=== PATIENT | female | born 1980 | race Caucasian/White ===

== ENCOUNTER 2016-03-27 11:19 | Outpatient (CLI) | payer MEDICAID | END 2016-03-27 11:20 | disposition home or self-care (01) | DX: G47.33 Obstructive sleep apnea (adult) (pediatric) (principal); G47.8 Other sleep disorders; G47.10 Hypersomnia, unspecified; R06.83 Snoring ==

== ENCOUNTER 2016-06-04 10:23 | Outpatient (CLI) | payer MEDICAID | END 2016-06-04 10:24 | disposition home or self-care (01) | DX: G47.33 Obstructive sleep apnea (adult) (pediatric) (principal) ==

== ENCOUNTER 2016-06-18 17:15 | Emergency (ER) | payer MEDICAID ==
[2016-06-18] MEDS ORDERED: CYCLOBENZAPRINE 10 MG TABLET PO STA (18:19)
[2016-06-18] MEDS ORDERED: HYDROcod/ACETAM 5/325 MG TABLET PO STA (18:19)
[2016-06-18] MEDS ORDERED: DEXAMETHASONE 10 MG/ML VIAL PO STA (18:20)
[2016-06-18] MEDS ORDERED: HYDROcod/ACETAM 5/325 MG TABLET ONE (18:26)
[2016-06-18] MEDS ORDERED: CYCLOBENZAPRINE 10 MG TABLET PO ONE (18:27)
[2016-06-18] MEDS ORDERED: DEXAMETHASONE 10 MG/ML VIAL ONE (18:27)
== END 2016-06-18 18:58 | disposition home or self-care (01) ==
DX: S16.1XXA Strain of muscle, fascia and tendon at neck level, initial encounter (principal); X58.XXXA Exposure to other specified factors, initial encounter; R03.0 Elevated blood-pressure reading, without diagnosis of hypertension
CPT/HCPCS: 99283; A9270

== ENCOUNTER 2016-06-25 08:08 | Emergency (ER) | payer MEDICAID ==
[2016-06-25] MEDS ORDERED: TRIAMCINOLONE 40 MG/ML VIAL IM STA (08:31)
[2016-06-25] MEDS ORDERED: diazePAM 5 MG TABLET PO STA (08:32)
[2016-06-25] MEDS ORDERED: traMADol 50 MG TABLET PO STA (08:32)
[2016-06-25] MEDS ORDERED: TRIAMCINOLONE 40 MG/ML VIAL ONE (08:34)
[2016-06-25] MEDS ORDERED: traMADol 50 MG TABLET PO ONE (08:34)
[2016-06-25] MEDS ORDERED: diazePAM 5 MG TABLET PO ONE (08:35)
== END 2016-06-25 09:20 | disposition home or self-care (01) ==
DX: M62.838 Other muscle spasm (principal)
CPT/HCPCS: 20552; 99283; A9270

== ENCOUNTER 2016-07-14 16:13 | Outpatient (CLI) | payer MEDICAID ==
[2016-07-14] MEDS ORDERED: GADOBUTROL 7.5 MMOL/7.5 ML VIAL IVP ONE (17:03)
== END 2016-07-14 16:14 | disposition home or self-care (01) ==
DX: R20.9 Unspecified disturbances of skin sensation (principal); R41.3 Other amnesia
CPT/HCPCS: 70553; A9585

== ENCOUNTER 2016-11-01 14:07 | Outpatient (CLI) | payer MEDICAID ==
[2016-11-01 19:05] LABS: BASOPHILS % (AUTO) 0.1 %; EOSINOPHILS % (AUTO) 0.3 %; HCT - HEMATOCRIT 39.3 % (37.0-47.0); LYMPHOCYTES % (AUTO) 27.3 %; MEAN CORPUSCULAR HEMOGLOBIN 25.9 pg (27.0-31.0); MEAN CORPUSCULAR VOLUME 78.5 fL (81.0-99.0); MEAN PLATELET VOLUME 10.8 fL (7.9-10.8); MONOCYTES # (AUTO) 0.5 10^3/uL (0.0-1.0); MONOCYTES % (AUTO) 7.4 %; NEUTROPHILS # (AUTO) 4.8 10^3/uL (1.5-6.6); NEUTROPHILS % (AUTO) 64.9 %; RED BLOOD COUNT 5.01 10^6/uL (4.20-5.40); RED CELL DISTRIBUTION WIDTH 13.3 % (12.0-15.0); UNCORRECTED WHITE BLOOD COUNT 7.3 x10^3/uL; WHITE BLOOD COUNT 7.3 x10^3/uL (4.8-10.8)
[2016-11-01 19:25] LABS: ALBUMIN/GLOBULIN RATIO 1.4 (1.0-2.2); BILIRUBIN,TOTAL 0.4 mg/dL (0.2-1.0); BUN - BLOOD UREA NITROGEN 7 mg/dL (6-20); CALCIUM 9.3 mg/dL (8.5-10.3); CARBON DIOXIDE - CO2 24 mmol/L (21-32); CHLORIDE 104 mmol/L (101-111); CREATININE 0.7 mg/dL (0.4-1.0); GFR - MDRD 94 (>89); GLUCOSE 90 mg/dL (70-100); IRON 39 ug/dL (28-170); POTASSIUM 3.8 mmol/L (3.5-5.0); SODIUM 138 mmol/L (135-145); TOTAL IRON BINDING CAPACITY 463 ug/dL (250-450); TOTAL PROTEIN 7.5 g/dL (6.7-8.2); TRANSFERRIN 331 mg/dL (192-382)
[2016-11-01 19:38] LABS: FERRITIN 21.1 ng/mL (11.0-306.8)
[2016-11-01 19:52] LABS: THYROID STIMULATING HORMONE 1.22 uIU/mL (0.34-5.60)
== END 2016-11-01 14:08 | disposition home or self-care (01) ==
LOC: LAB.WCP 14:07
PROVIDERS: ATTEND Physician Assistant Medical
DX: Z51.81 Encounter for therapeutic drug level monitoring (principal)
CPT/HCPCS: 36415; 80053; 82728; 83540; 84443; 84466; 85025

== ENCOUNTER 2016-12-09 08:22 | Outpatient (CLI) | payer MEDICAID | END 2016-12-09 08:23 | disposition home or self-care (01) | LOC: DI 08:22 | PROVIDERS: ATTEND Physician Assistant Medical | DX: R00.1 Bradycardia, unspecified (principal); I51.7 Cardiomegaly | CPT/HCPCS: 93306 ==

== ENCOUNTER 2017-03-03 20:08 | Emergency (ER) | payer MEDICAID, OTHER ==
[2017-03-03 20:49] LABS: BASOPHILS % (AUTO) 0.3 %; EOSINOPHILS # (AUTO) 0.1 10^3/uL (0.0-0.7); EOSINOPHILS % (AUTO) 0.9 %; HGB - HEMOGLOBIN 12.4 g/dL (12.0-16.0); LYMPHOCYTES # (AUTO) 1.3 10^3/uL (1.5-3.5); LYMPHOCYTES % (AUTO) 15.2 %; MEAN CORPUSCULAR HEMOGLOBIN 24.7 pg (27.0-31.0); MEAN CORPUSCULAR HGB CONC 31.7 g/dL (32.0-36.0); MEAN CORPUSCULAR VOLUME 77.9 fL (81.0-99.0); MEAN PLATELET VOLUME 9.9 fL (7.9-10.8); MONOCYTES # (AUTO) 0.4 10^3/uL (0.0-1.0); MONOCYTES % (AUTO) 5.4 %; NEUTROPHILS # (AUTO) 6.5 10^3/uL (1.5-6.6); NEUTROPHILS % (AUTO) 78.2 %; PLT - PLATELET COUNT 198 10^3/uL (130-450); RED BLOOD COUNT 5.01 10^6/uL (4.20-5.40); RED CELL DISTRIBUTION WIDTH 12.8 % (12.0-15.0); WHITE BLOOD COUNT 8.3 x10^3/uL (4.8-10.8)
[2017-03-03 21:06] LABS: ALBUMIN 4.1 g/dL (3.2-5.5); ALBUMIN/GLOBULIN RATIO 1.2 (1.0-2.2); BILIRUBIN,TOTAL 0.3 mg/dL (0.2-1.0); CALCIUM 9.4 mg/dL (8.5-10.3); CREATININE 0.7 mg/dL (0.4-1.0); MAGNESIUM 2.1 mg/dL (1.7-2.8); PHOSPHORUS 1.6 mg/dL (2.5-4.6); TOTAL PROTEIN 7.4 g/dL (6.7-8.2)
[2017-03-03 21:30] LABS: MUDS CUTOFF CONCENTRATIONS CUTOFF CONC BELOW:
[2017-03-03 21:32] LABS: BILIRUBIN,URINE NEGATIVE (NEGATIVE); GLUCOSE, URINE (UA) NEGATIVE (NEGATIVE); KETONES,URINE (UA) NEGATIVE (NEGATIVE); LEUKOCYTE ESTERASE, URINE NEGATIVE (NEGATIVE); NITRITE,URINE NEGATIVE (NEGATIVE); OCCULT BLOOD,URINE MODERATE (NEGATIVE); PROTEIN,URINE NEGATIVE (NEGATIVE); UROBILINOGEN,URINE 0.2 (NORMAL) E.U./dL (NORMAL)
[2017-03-03 21:34] LABS: CLARITY,URINE HAZY (CLEAR)
[2017-03-03] MEDS ORDERED: ONDANSETRON ODT 4 MG TABLET TL STA (21:36)
[2017-03-03 21:44] LABS: AMPHETAMINE SCREEN,URINE NEGATIVE (NEGATIVE); BACTERIA,URINE Moderate /HPF (None Seen); BENZODIAZEPINES SCREEN, URINE NEGATIVE (NEGATIVE); COCAINE SCREEN URINE NEGATIVE (NEGATIVE); METHADONE SCREEN, URINE NEGATIVE (NEGATIVE); METHAMPHETAMINES SCREEN, URINE NEGATIVE (NEGATIVE); OPIATE SCREEN, URINE NEGATIVE (NEGATIVE); OXYCODONE SCREEN, URINE NEGATIVE (NEGATIVE); PROPOXYPHENE SCREEN, URINE NEGATIVE (NEGATIVE); SQUAMOUS EPITHELIAL CELL,UR MANY Squamous (<= Few); TRICYCLIC ANTIDEPRESSANT,URINE NEGATIVE (NEGATIVE)
--- NOTE | 2017-03-03 21:57 | ED Physician Documentation ---
PD HPI CHEST PAIN - Stated complaint Stated Complaint: HEART PALP/NAUSEA - Chief complaint Chief Complaint: Cardiac - History obtained from History obtained from: Patient, Family - History of Present Illness Timing - onset: Today Timing - details: Now resolved, Intermittant Associated symptoms: Palpitations Similar symptoms before: Work up / diagnostics Recently seen: Clinic - Additional information Additional information: Patient is a 36 year old female presenting to the emergency department for palpitations. patient states that she has had the symptoms for the past few weeks. patient states that it just comes and goes without aggravating or alleviating factors. patient states that at times it is accompanied by nausea. Patient saw her pmd, who scheduled cardiology follow up, but the pmd was unable to order a halter monitor. patient states that she has been working with her signals officer for elevated cortisol levels. Review of Systems Constitutional: denies: Fever, Chills Eyes: denies: Decreased vision, Photophobia Ears: denies: Ear pain, Drainage/discharge Nose: reports: Reviewed and negative Throat: reports: Reviewed and negative Cardiac: reports: Palpitations. denies: Chest pain / pressure Respiratory: denies: Dyspnea, Cough, Wheezing GI: reports: Nausea, Vomiting. 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 HEENT: Other - Present Medications Home Medications: Ambulatory Orders Medication Instructions Recorded Confirmed Levonorgestrel-Ethin Estradiol 1 tab PO DAILY 11/22/16 03/03/17 [Levonor-Eth Estrad 0.1-0.02 mg] Ondansetron Odt [Zofran] 4 mg TL Q6H PRN #14 tablet 03/03/17 - Allergies Allergies/Adverse Reactions: Allergies Allergy/AdvReac Type Severity Reaction Status Date / Time ibuprofen Allergy Severe Edema Verified 03/03/17 20:15 - Social History Does the pt smoke?: No Smoking Status: Never smoker Does the pt drink ETOH?: No Does the pt have substance abuse?: No - Immunizations Immunizations are current?: Yes - POLST Patient has POLST: No PD ED PE NORMAL - General General: Alert and oriented X 3, No acute distress, Well developed/nourished - HEENT HEENT: Atraumatic, PERRL, Moist mucous membranes - Neck Neck: Supple, no meningeal sign, No JVD - Cardiac Cardiac: RRR, No murmur - Respiratory Respiratory: No respiratory distress, Clear bilaterally - Abdomen Abdomen: Soft, Non tender, Non distended - Derm Derm: Normal color, Warm and dry, No rash - Extremities Extremities: No deformity, Normal ROM s pain, No calf tenderness / cord - Neuro Neuro: Alert and oriented X 3, No motor deficit, No sensory deficit, Normal speech - Psych Psych: Normal mood Results - Vitals Vitals: Vital Signs - 24 hr 03/03/17 20:12 Temperature 36.3 C L Heart Rate 66 Respiratory 18 Rate Blood Pressure 161/86 H O2 Saturation 100 Oxygen O2 Source Room air - EKG (time done) 2025 Rate: Rate (enter#) (59) Rhythm: Sinus bradycardia [place]: Normal Intervals: Normal [place] QRS: Normal Ischemia: Normal ST segments Compare to prior EKG: Unchanged from prior EKG - Labs Labs: Laboratory Tests 03/03/17 03/03/17 03/03/17 20:42 20:42 20:42 WBC 8.3 RBC 5.01 Hgb 12.4 Hct 39.0 MCV 77.9 L MCH 24.7 L MCHC 31.7 L RDW 12.8 Plt Count 198 MPV 9.9 Neut # 6.5 Lymph # 1.3 L [place] # 0.4 Eos # 0.1 Baso # 0.0 Absolute Nucleated RBC 0.00 Nucleated RBC % 0.0 Sodium 138 Potassium 3.4 L Chloride 103 Carbon Dioxide 23 Anion Gap 12.0 BUN 8 Creatinine 0.7 Estimated GFR (MDRD) 94 Glucose 149 H Calcium 9.4 Phosphorus 1.6 L Magnesium 2.1 Total Bilirubin 0.3 AST 22 ALT 19 Alkaline Phosphatase 47 Troponin I < 0.04 Total Protein 7.4 Albumin 4.1 Globulin 3.3 Albumin/Globulin Ratio 1.2 Lipase 21 L TSH HCG, Quant Urine Color Urine Clarity Urine pH Ur Specific [place] Urine Protein Urine Glucose (UA) Urine Ketones Urine Occult Blood Urine Nitrite Urine Bilirubin Urine Urobilinogen Ur Leukocyte Esterase Urine RBC Urine WBC Ur Squamous Epith Cells Urine Bacteria Ur Microscopic Review Urine Culture Comments Urine Opiates Screen Ur Oxycodone Screen Urine Methadone Screen Ur Propoxyphene Screen Ur Barbiturates Screen Ur Tricyclics Screen Ur Phencyclidine Scrn Ur Amphetamine Screen U Methamphetamines Scrn U Benzodiazepines Scrn Urine Cocaine Screen U Cannabinoids Screen 03/03/17 03/03/17 03/03/17 20:42 20:42 21:24 WBC RBC Hgb Hct MCV MCH MCHC RDW Plt Count MPV Neut # Lymph # [place] # Eos # Baso # Absolute Nucleated RBC Nucleated RBC % Sodium Potassium Chloride Carbon Dioxide Anion Gap BUN Creatinine Estimated GFR (MDRD) Glucose Calcium Phosphorus Magnesium Total Bilirubin AST ALT Alkaline Phosphatase Troponin I Total Protein Albumin Globulin Albumin/Globulin Ratio Lipase TSH 1.22 HCG, Quant < 0.60 Urine Color YELLOW Urine Clarity HAZY Urine pH 6.0 Ur Specific [place] >=1.030 H Urine Protein NEGATIVE Urine Glucose (UA) NEGATIVE Urine Ketones NEGATIVE Urine Occult Blood MODERATE H Urine Nitrite NEGATIVE Urine Bilirubin NEGATIVE Urine Urobilinogen 0.2 (NORMAL) Ur Leukocyte Esterase NEGATIVE Urine RBC 6-10 H Urine WBC 0-3 Ur Squamous Epith Cells MANY Squamous H Urine Bacteria Moderate H Ur Microscopic Review INDICATED Urine Culture Comments NOT INDICATED Urine Opiates Screen NEGATIVE Ur Oxycodone Screen NEGATIVE Urine Methadone Screen NEGATIVE Ur Propoxyphene Screen NEGATIVE Ur Barbiturates Screen NEGATIVE Ur Tricyclics Screen NEGATIVE Ur Phencyclidine Scrn NEGATIVE Ur Amphetamine Screen NEGATIVE U Methamphetamines Scrn NEGATIVE U Benzodiazepines Scrn NEGATIVE Urine Cocaine Screen NEGATIVE U Cannabinoids Screen NEGATIVE PD MEDICAL DECISION MAKING - ED course Complexity details: reviewed old records, reviewed results, re-evaluated patient , considered differential, d/w patient ED course: Patient was seen and examined at bedside. ekg was performed and showed normal sinus. Patient was well appearing and in no acute distress. patient's diagnostics were all within normal limits. Patient required no furhter work up and was stable for discharge with outpatient follow up. Departure - Departure Disposition: 01 Home, Self Care Clinical Impression: Heart palpitations Condition: Good Instructions: ED Palpitations Follow-Up: Liliana Gates PA-C [Primary Care Provider] - Within 3 Days Prescriptions: Ondansetron Odt [Zofran] 4 mg TL Q6H PRN #14 tablet PRN Reason: Nausea / Vomiting Comments: Your diagnostics today were within normal limits. there were no abnormalities on your blood work or ekg. This is only a snapshot in time and you should continue to work with your pmd or grocery store courtesy clerk for a holter monitor. You may return to the emergency department at any time for new, worsening or uncontrollable sympotms.
[2017-03-03 22:09] VITALS: BP 137/80
== END 2017-03-03 22:08 | disposition home or self-care (01) ==
LOC: ED 20:08
DX: R00.2 Palpitations (principal)
CPT/HCPCS: 36415; 80053; 80306; 81001; 83690; 83735; 84100; 84443; 84484; 84702; 85025; 93005; 99283; Q0162; 81003; 83880; 87086

== ENCOUNTER 2017-03-20 22:14 | Emergency (ER) | payer MEDICAID ==
[2017-03-20] MEDS ORDERED: SUMAtriptan 6 MG/0.5 ML VIAL SUBQ STA (22:38)
--- NOTE | 2017-03-20 22:39 | ED Physician Documentation ---
PD HPI FOCAL NEURO - Stated complaint Stated Complaint: BLURRY VISION - Chief complaint Chief Complaint: Neuro - History obtained from History obtained from: Patient - History of Present Illness Timing - onset: Other (She was putting her daughter to bed and looking at her daughter and it looked like her daughter's face started melting. Then she looked around and looked like she was looking through a kaleidoscope. She looked at her phone and regardless of which I she used, the left side of her phone was blurry and she was having trouble getting the numbers. 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, 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, LEEP (Cervical surgery) HEENT: Other - Present Medications Home Medications: Ambulatory Orders Medication Instructions Recorded Confirmed Levonorgestrel-Ethin Estradiol 1 tab PO DAILY 11/22/16 03/20/17 [Levonor-Eth Estrad 0.1-0.02 mg] SUMAtriptan [Imitrex] 25 mg PO BID PRN #10 tablet 03/20/17 - Allergies Allergies/Adverse Reactions: Allergies Allergy/AdvReac Type Severity Reaction Status Date / Time ibuprofen Allergy Severe Edema Verified 03/03/17 20:15 - Social History Does the pt smoke?: No Smoking Status: Never smoker Does the pt drink ETOH?: No Does the pt have substance abuse?: No - Immunizations Immunizations are current?: Yes - POLST Patient has POLST: No PD ED PE NORMAL - Vitals Vital signs reviewed: Yes - General General: Alert and oriented X 3, No acute distress - HEENT HEENT: PERRL, EOMI, Ears normal - Neck Neck: Supple, no meningeal sign, No bony TTP - Neuro Neuro: Alert and oriented X 3, 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 Eye Opening: Spontaneous Motor: Obeys Commands Verbal: Oriented GCS Score: 15 - Psych Psych: Normal mood, Normal affect NIHSS - Time Time: 20:30 - Level of Consciousness Level of consciousness: (0) Alert, Keenly responsive LOC Questions: (0) Answers both Q's correct LOC Commands: (0) Performs both correctly - Gaze Best Gaze: (0) Normal - Visual Visual: (0) No loss - Facial Palsy Facial Palsy: (0) Normal, symmetrical movement - Motor Arms (both separate) Motor Arm (right): (0) No drift Motor Arm (left): (0) No drift - Motor Legs (both separate) Motor Leg (right): (0) No drift Motor Leg (left): (0) No drift - Limb Ataxia Limb Ataxia: (0) Absent - Sensory Sensory: (0) Normal - Best Language Best Language: (0) No aphasia - Dysarthria Dysarthria: (0) Normal - Extinction and Inattention (formally neg Extinction and inattention: (0) No abnormality - Total Score/Results Total Score/Result: 0 Results - Vitals Vitals: Vital Signs - 24 hr 03/20/17 22:19 Temperature 37.2 C Heart Rate 67 Respiratory 14 Rate Blood Pressure 144/82 H O2 Saturation 99 Oxygen O2 Source Room air PD MEDICAL DECISION MAKING - ED course ED course: Her history is diagnostic of ocular migraine. Her examination at this juncture is normal and she is administered Imitrex. Departure - Departure Disposition: 01 Home, Self Care Clinical Impression: Ocular migraine Condition: Good Record reviewed to determine appropriate education?: Yes Instructions: ED Headache Migraine Prescriptions: SUMAtriptan [Imitrex] 25 mg PO BID PRN #10 tablet PRN Reason: Headache Comments: Call your doctor to arrange a follow-up appointment, make the next available appointment. In the interim, return anytime if worse or if new symptoms develop. Your blood pressure was elevated today on check into the emergency department. This does not mean that you have hypertension, it is a common phenomenon to come to the emergency department and have elevated blood pressure. I recommend that you see your primary care physician within the week to have it rechecked when you are feeling better.
[2017-03-20] MEDS ORDERED: ONDANSETRON ODT 4 MG TABLET TL STA (23:19)
[2017-03-20] MEDS ORDERED: oxyCODONE/ACET 5/325 Prepack 4 PO STA (23:20)
[2017-03-20 23:25] VITALS: BP 140/79
== END 2017-03-20 23:50 | disposition home or self-care (01) ==
LOC: ED 22:14
DX: G43.B0 Ophthalmoplegic migraine, not intractable (principal); R03.0 Elevated blood-pressure reading, without diagnosis of hypertension
CPT/HCPCS: 96372; 99283; Q0162

== ENCOUNTER 2017-03-29 08:00 | Outpatient (CLI) | payer MEDICAID ==
[2017-03-29 21:05] LABS: PHOSPHORUS 3.2 mg/dL (2.5-4.6)
== END 2017-03-29 08:01 | disposition home or self-care (01) ==
LOC: LAB.WCP 08:00
PROVIDERS: ATTEND Physician Assistant Medical
DX: E83.39 Other disorders of phosphorus metabolism (principal); E87.6 Hypokalemia
CPT/HCPCS: 36415; 84100; 84132

== ENCOUNTER 2018-04-09 19:06 | Emergency (ER) | payer MEDICAID ==
[2018-04-09 19:34] LABS: BASOPHILS % (AUTO) 0.9 %; EOSINOPHILS # (AUTO) 0.1 10^3/uL (0.0-0.7); EOSINOPHILS % (AUTO) 2.6 %; LYMPHOCYTES # (AUTO) 1.5 10^3/uL (1.5-3.5); MEAN CORPUSCULAR HEMOGLOBIN 25.5 pg (27.0-31.0); MEAN CORPUSCULAR HGB CONC 31.6 g/dL (32.0-36.0); MEAN CORPUSCULAR VOLUME 80.7 fL (81.0-99.0); MEAN PLATELET VOLUME 8.9 fL (7.9-10.8); MONOCYTES # (AUTO) 0.5 10^3/uL (0.0-1.0); MONOCYTES % (AUTO) 8.8 %; NEUTROPHILS # (AUTO) 3.3 10^3/uL (1.5-6.6); NEUTROPHILS % (AUTO) 60.7 %; PLT - PLATELET COUNT 187 10^3/uL (130-450); RED BLOOD COUNT 4.73 10^6/uL (4.20-5.40); RED CELL DISTRIBUTION WIDTH 14.3 % (12.0-15.0); WHITE BLOOD COUNT 5.4 x10^3/uL (4.8-10.8)
[2018-04-09 19:48] LABS: ALBUMIN 4.1 g/dL (3.2-5.5); ALBUMIN/GLOBULIN RATIO 1.6 (1.0-2.2); BILIRUBIN,TOTAL 0.7 mg/dL (0.2-1.0); CALCIUM 8.9 mg/dL (8.5-10.3); CREATININE 0.7 mg/dL (0.4-1.0); TOTAL PROTEIN 6.6 g/dL (6.7-8.2)
[2018-04-09 20:35] LABS: BILIRUBIN,URINE NEGATIVE (NEGATIVE); CLARITY,URINE CLEAR (CLEAR); GLUCOSE, URINE (UA) NEGATIVE (NEGATIVE); KETONES,URINE (UA) NEGATIVE (NEGATIVE); LEUKOCYTE ESTERASE, URINE NEGATIVE (NEGATIVE); NITRITE,URINE NEGATIVE (NEGATIVE); OCCULT BLOOD,URINE NEGATIVE (NEGATIVE); PH,URINE 6.5 PH (5.0-7.5); PROTEIN,URINE NEGATIVE (NEGATIVE); UROBILINOGEN,URINE 0.2 (NORMAL) E.U./dL (NORMAL)
[2018-04-09 20:37] LABS: HCG UR QUAL NEGATIVE
--- NOTE | 2018-04-09 21:21 | ED Physician Documentation ---
PD HPI ABD PAIN - Stated complaint Stated Complaint: SIDE PX/NAUSEA - Chief complaint Chief Complaint: Abd Pain - History obtained from History obtained from: Patient - History of Present Illness Timing - onset: How many months ago (intermittent upper abd pain for 2 months, more frequent the past week or so, and has had consistent pain RUQ since yesterday, with nausea and diarrhea today. Vomited couple times without blood seen.) Timing - details: Still present (continued pain RUQ since yesterday, frequent the past week.), Intermittant Quality: Cramping, Aching, Pain Location: RUQ, Epigastric Radiation: Upper back Improved by: Laying still. No: Vomiting Worsened by: Moving, Breathing (sometimes hurts with deep breaths), Palpation. No: Eating Associated symptoms: Nausea, Vomiting, Diarrhea (just today several times, w ithout melena). No: Fever, Hematemesis, Melena Similar symptoms before: Has not had sx before Recently seen: Not recently seen Review of Systems Constitutional: denies: Fever, Chills, Myalgias Nose: denies: Rhinorrhea / runny nose, Congestion Throat: denies: Sore throat Cardiac: denies: Chest pain / pressure Respiratory: denies: Cough GI: reports: Abdominal Pain. 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 (Cervical surgery) HEENT: Other - Present Medications Home Medications: Ambulatory Orders Medication Instructions Recorded Confirmed Levonorgestrel-Ethin Estradiol 1 tab PO DAILY 11/22/16 03/20/17 [Levonor-Eth Estrad 0.1-0.02 mg] SUMAtriptan [Imitrex] 25 mg PO BID PRN #10 tablet 03/20/17 Famotidine 20 mg PO DAILY #30 tablet 04/10/18 Lidocaine Viscous 2% [Xylocaine 5 ml PO Q4H PRN #100 ml 04/10/18 Viscous 2%] Ondansetron Odt [Zofran] 4 mg TL Q6H PRN #10 tablet 04/10/18 Oxycodone HCl/Acetaminophen 1 each PO Q6H PRN #14 tablet 04/10/18 [Percocet 5-325 mg Tablet] - Allergies Allergies/Adverse Reactions: Allergies Allergy/AdvReac Type Severity Reaction Status Date / Time ibuprofen Allergy Severe Edema Verified 04/09/18 19:17 - Social History Does the pt smoke?: No Smoking Status: Never smoker Does the pt drink ETOH?: No Does the pt have substance abuse?: No - Immunizations Immunizations are current?: Yes - POLST Patient has POLST: No PD ED PE NORMAL - Vitals Vital signs reviewed: Yes - General General: Alert and oriented X 3, Well developed/nourished, Other (appears in pain; holding upper abd. ) - HEENT HEENT: PERRL (nonicteric), Pharynx benign - Neck Neck: Supple, no meningeal sign, No adenopathy - Cardiac Cardiac: RRR, No murmur - Respiratory Respiratory: Clear bilaterally - Abdomen Abdomen: Normal bowel sounds, Soft, Non distended, No organomegaly, Other (tender RUQ with positive [place] sign. Lower abd not tender. No rebound nor percussion tenderness. ) - Female Female : Deferred - Rectal Rectal: Deferred - Back Back: No CVA TTP - Derm Derm: Normal color, Warm and dry - Extremities Extremities: No tenderness to palpate, Normal ROM s pain, No edema, No calf tenderness / cord - Neuro Neuro: Alert and oriented X 3, No motor deficit, Normal speech Results - Vitals Vitals: Vital Signs - 24 hr 04/09/18 04/10/18 23:17 00:31 Temperature 36.0 C L 36.5 C Heart Rate 48 L 48 L Respiratory 16 16 Rate Blood Pressure 114/79 109/78 O2 Saturation 99 97 Oxygen O2 Source Room air - Labs Labs: Laboratory Tests 04/09/18 04/09/18 04/09/18 19:29 19:29 20:26 WBC 5.4 RBC 4.73 Hgb 12.0 Hct 38.2 MCV 80.7 L MCH 25.5 L MCHC 31.6 L RDW 14.3 Plt Count 187 MPV 8.9 Neut # (Auto) 3.3 Lymph # (Auto) 1.5 [place] # (Auto) 0.5 Eos # (Auto) 0.1 Baso # (Auto) 0.0 Absolute Nucleated RBC 0.00 Nucleated RBC % 0.0 Sodium 137 Potassium 3.4 L Chloride 99 L Carbon Dioxide 28 Anion Gap 10.0 BUN 12 Creatinine 0.7 Estimated GFR (MDRD) 94 Glucose 101 H Calcium 8.9 Total Bilirubin 0.7 AST 22 ALT 23 Alkaline Phosphatase 41 L Total Protein 6.6 L Albumin 4.1 Globulin 2.5 Albumin/Globulin Ratio 1.6 Lipase 51 Urine Color YELLOW Urine Clarity CLEAR Urine pH 6.5 Ur Specific [place] 1.015 Urine Protein NEGATIVE Urine Glucose (UA) NEGATIVE Urine Ketones NEGATIVE Urine Occult Blood NEGATIVE Urine Nitrite NEGATIVE Urine Bilirubin NEGATIVE Urine Urobilinogen 0.2 (NORMAL) Ur Leukocyte Esterase NEGATIVE Ur Microscopic Review NOT INDICATED Urine Culture Comments NOT INDICATED Urine HCG, Qual NEGATIVE - Rads (name of study) RUQ abd U/S Radiology: Prelim report reviewed (mobile gallstone without wall thickening nor surrounding fluid. CBD normal 3 mm. ) PD MEDICAL DECISION MAKING - ED course Complexity details: reviewed results (gallstone that is mobile. No wall thickening though, but is tender over gallbladder. Pain less with meds here (she declined IV, so just had oral meds). Will discharge home with meds for possible gastritis and pain meds for gallbladder and expect improvement over a day or two, and to recheck if not. Sooner if fevers, worse pain, vomiting. ), considered differential (sounds like gallbladder pain, though consider gastritis as well. Not tender lower abd. ), d/w patient Departure - Departure Disposition: 01 Home, Self Care Clinical Impression: Upper abdominal pain Cholelithiasis Qualifiers: Cholelithiasis location: gallbladder Cholecystitis presence: without cholecystitis Biliary obstruction: without biliary obstruction Qualified Code(s): K80.20 - Calculus of gallbladder without cholecystitis without obstruction Gastritis Qualifiers: Gastritis type: unspecified gastritis Chronicity: acute Gastritis bleeding: without bleeding Qualified Code(s): K29.00 - Acute gastritis without bleeding Condition: Stable Record reviewed to determine appropriate education?: Yes Instructions: ED Abdominal Pain Gallstone Poss, ED Gastritis Follow-Up: Waqar Ross MD [Primary Care Provider] - Hugh Morales MD [Provider Admit Priv/Credential] - Prescriptions: Famotidine 20 mg PO DAILY #30 tablet Lidocaine Viscous 2% [Xylocaine Viscous 2%] 5 ml PO Q4H PRN #100 ml PRN Reason: Pain Ondansetron Odt [Zofran] 4 mg TL Q6H PRN #10 tablet PRN Reason: Nausea / Vomiting Oxycodone HCl/Acetaminophen [Percocet 5-325 mg Tablet] 1 each PO Q6H PRN #14 tablet PRN Reason: pain Comments: The location and character of the pain would go along with gallbladder pain. You do have a mobile gallstone on ultrasound which would correlate with that. However there is no signs of inflammation of the gallbladder that you might expect with your current pain. Therefore would also consider other causes of the pain such as an ulcer or gastritis. Have you avoid anti-inflammatories. Use ondansetron if needed for nausea. Antacid and lidocaine for stomach pains episodically. Add Percocet pain medicine if needed for pain. Drink lots of fluids. Recheck if not improved over the next 2-3 days return sooner if worsening. Follow-up with surgery and call for an appointment regarding the potential indications or such for gallbladder surgery. Forms: Activity restrictions Discharge Date/Time: 04/10/18 00:34
[2018-04-09] MEDS: ONDANSETRON ODT 4 MG TABLET TL STA (22:00)
[2018-04-09] MEDS: FAMOTIDINE 20 MG TABLET PO STA (22:00)
[2018-04-09] MEDS: MAG HYDROX/AL HYDROX/SIMETH 30 ML UDC PO STA ×2 (22:00→23:58)
[2018-04-09] MEDS: KETOROLAC 15 MG/ML VIAL IVP STA (22:12)
[2018-04-09] MEDS: HYDROcod/ACETAM 5/325 MG TABLET PO STA (22:12)
[2018-04-09] MEDS: FAMOTIDINE 20 MG/2 ML VIAL IVP STA (22:12)
[2018-04-09] MEDS: ONDANSETRON 4 MG/2 ML VIAL IVP STA (22:13)
[2018-04-09] MEDS: SODIUM CHLORIDE 0.9% 1,000 ML IV ONE (22:13)
--- NOTE | 2018-04-09 23:17 | Ultrasound Report ---
Reason: RUQ pain for 3 days consistently, on and off 1 mon Procedure Date: 04/09/2018 Accession Number: [id number] / [id number] Procedure: US - Abdomen Limited CPT Code: FULL RESULT: EXAM: ABDOMEN ULTRASOUND LIMITED, RUQ EXAM DATE: 04/09/2018 10:56 PM. CLINICAL HISTORY: RUQ pain for 3 days consistently, on and off 1 mon. COMPARISON: None. TECHNIQUE: Real-time scanning was performed with static images obtained. FINDINGS: Liver: Normal in size and echotexture. 19.6 cm. Main portal vein flow: Hepatopetal. Gallbladder: .Mm gallstone. No abnormal wall thickening or sonographic [place] sign. Biliary System: CBD measures 3 mm. No intrahepatic biliary ductal dilatation. Other: Right kidney measures 11.1 cm without hydronephrosis. IMPRESSION: Cholelithiasis. No sonographic evidence for cholecystitis. RADIA
[2018-04-09] MEDS: oxyCODONE 5 MG TABLET PO STA (23:57)
[2018-04-09] MEDS: LIDOCAINE VISCOUS 2% 15 ML UDC MM STA (23:58)
[2018-04-09] MEDS: oxyCODONE/ACET 5/325 Prepack 4 PO STA (23:59)
[2018-04-10 00:32] VITALS: BP 109/78
== END 2018-04-10 00:34 | disposition home or self-care (01) ==
LOC: ED 19:06
DX: K80.20 Calculus of gallbladder without cholecystitis without obstruction (principal); K29.00 Acute gastritis without bleeding
CPT/HCPCS: 36415; 76705; 80053; 81001; 81003; 81025; 83690; 85025; 87086; 99283

== ENCOUNTER 2018-04-16 06:04 | Day surgery (SDC) | payer MEDICAID ==
[2018-04-16] MEDS ORDERED: LACTATED RINGERS 1,000 ML IV ONE ×2 (06:42→08:54)
[2018-04-16] MEDS ORDERED: ONDANSETRON 4 MG/2 ML VIAL ONE ×2 (07:03→09:16)
--- NOTE | 2018-04-16 07:06 | ANESTHESIA ---
Pre-Anesthesia VS, & Labs - Diagnosis cholelithiasis - Procedure laparoscopic cholecystectomy Vital Signs: Temp Pulse Resp BP Pulse Ox 36.6 C 57 L 16 119/80 98 04/16/18 06:32 04/16/18 06:32 04/16/18 06:32 04/16/18 06:32 04/16/18 06:32 Height 5 ft 2 in Weight (kg) 66 kg Body Mass Index 26.5 - NPO >8 hours - Is Patient ?: Waiver signed Home Medications and Allergies Home Medications: Ambulatory Orders Minocycline HCl 100 mg PO DAILY 04/15/18 Minocycline HCl 100 mg PO DAILY 04/15/18 Allergies/Adverse Reactions: Allergies Allergy/AdvReac Type Severity Reaction Status Date / Time ibuprofen Allergy Severe Edema Verified 04/09/18 19:17 iron AdvReac Nausea Verified 04/11/18 10:01 Anes History & Medical History - Anesthetic History Anesthesia Complications: reports: No previous complications Family history of Anesthesia Complications: Reports Family history of Malignant Hyperthermia: Denies - Medical History Cardiovascular: reports: Other Pulmonary: reports: Sleep apnea Gastrointestinal: reports: None Urinary: reports: None Musculoskeletal: reports: None Endocrine/Autoimmune: reports: None Skin: reports: None Smoking Status: Never smoker - Surgical History Eyes Ears Nose Throat (EENT): Other Gynecologic: section, Oophrectomy, LEEP (Cervical surgery) Exam General: Alert, Oriented x3, Cooperative, No acute distress Dental: WNL Mouth Openin Fingerbreadth Neck Mobility: Normal Mallampati classification: II Thyromental Distance: 4-6 cm Respiratory: Lungs clear, Normal breath sounds, No respiratory distress, No accessory muscle use Cardiovascular: Regular rate, Normal S1, Normal S2, No murmurs Mental/Cognitive Status: Alert/Oriented X3, Normal for patient Plan Anesthesia Type: General Consent for Procedure(s) Verified and Reviewed: Yes Code Status: Attempt Resuscitation ASA classification: 2-Mild systemic disease Is this case an emergency?: No
[2018-04-16] MEDS ORDERED: BUPIVACAINE 0.5% PF 30 ML VIAL ONE (07:25)
[2018-04-16] MEDS ORDERED: ceFAZolin 2 GM/50 ML 2 GM/50 ML BAG IV ONE (07:40)
[2018-04-16] MEDS ORDERED: ePHEDrine 50 MG/ML VIAL IVP ONE (08:00)
[2018-04-16] MEDS ORDERED: DEXAMETHASONE 4 MG/ML VIAL IVP ONE (08:00)
[2018-04-16] MEDS ORDERED: MIDAZOLAM 2 MG/2 ML VIAL IVP ONE (08:00)
[2018-04-16] MEDS ORDERED: ROCURONIUM 50 MG/5 ML VIAL IVP ONE (08:00)
[2018-04-16] MEDS ORDERED: GLYCOPYRROLATE 1 MG/5 ML VIAL IVP ONE (08:00)
[2018-04-16] MEDS ORDERED: ONDANSETRON 4 MG/2 ML VIAL IVP ONE (08:00)
[2018-04-16] MEDS ORDERED: BUPIVACAINE 0.5% PF 30 ML VIAL SUBQ ONE ×4 (08:00→08:35)
[2018-04-16] MEDS ORDERED: PROPOFOL 200 MG/20 ML VIAL IVP ONE (08:00)
[2018-04-16] MEDS ORDERED: SODIUM CHLORIDE 0.9% 10 ML VIAL IV ONE (08:00)
[2018-04-16] MEDS ORDERED: LIDOCAINE-MPF 2% 5 ML VIAL IM ONE (08:00)
[2018-04-16] MEDS ORDERED: NEOSTIGMINE 1 MG/1 ML 10 ML MDV IVP ONE (08:00)
[2018-04-16] MEDS ORDERED: fentaNYL 100 MCG/2 ML VIAL IVP ONE (08:00)
[2018-04-16] MEDS ORDERED: HYDROcod/ACETAM 5/325 MG TABLET PO PRN (08:51)
[2018-04-16] MEDS ORDERED: HYDROmorphone 0.5 MG/0.5 ML SYRINGE IVP PRN (08:51)
[2018-04-16] MEDS ORDERED: ONDANSETRON 4 MG/2 ML VIAL IVP PRN (08:51)
--- NOTE | 2018-04-16 08:54 | OPERATIVE REPORT ---
Operative Report - General Procedure Date: 04/16/18 Planned Procedure: Laparoscopic cholecystectomy, possible open cholecystectomy, possible intra Pre-Op Diagnosis: Symptomatic cholelithiasis Procedure Performed: Laparoscopic cholecystectomy Post Op Diagnosis: Same - Procedure Note Primary Surgeon: Hugh Morales MD Anesthesia Provider: Bin Garcia CRNA Anesthesia Technique: General ET tube, Local (30 mL of half percent Marcaine) IV Fluids (mL): 700 Estimated Blood Loss (mL): 1 Drain/Tube Type: Other (None.) Complications: None. - Other Other Information/Narrative: OPERATIVE DESCRIPTION/REPORT: After verbal and written informed consent was obtained detailing the risks of infection, bleeding with all of its risks including transfusion, common bile duct injury, and the patient was brought to the operative suite and placed in the supine position on the operating room table. Monitoring devices were applied along with TEDs and pneumatic compressive stockings. Care was taken to avoid pressure points. Prophylactic antibiotics were given. An adequate level of general endotracheal anesthesia was established by Karen Garcia CRNA. The abdomen was then prepped with ChloraPrep and draped in a sterile fashion. A "time in" then confirmed that the patient was identified with 3 identifiers (name, date and medical record number), the history and physical was in the chart, the signed consent confirming the procedure was in the chart, the patient was in the correct position, the aforementioned prophylactic measures were in place or given, we had the correct personnel and equipment to complete the procedure and that anesthesia, surgery and nursing were given an opportunity to express any concerns. The initial incision was at the umbilicus and dissection to the linea alba was completed using blunt dissection. The linea alba was grasped with a Jeremi and incised. In a similar manner the peritoneum was grasped and incised using Metzenbaum scissors. In this location, a 12 mm blunt tipped, balloon tipped port was placed and the balloon was inflated to keep the port in position. The abdominal cavity was insufflated with carbon dioxide to steady-state pressure of 15 mmHg. Three additional 5 mm ports were placed in standard location for laparoscopic cholecystectomy (subxiphoid and 2 right subcostal) under direct vision of the 30 degree laparoscope and without incident. The patient was then placed in reverse Trendelenburg position and was rotated slightly to their left. The gallbladder fundus was grasped with an atraumatic grasper. I identified the infundibulum, and this was then grasped and retracted inferior and laterally. Dissection was then begun in the angle of Calot. The cystic duct and was clearly identified. The critical view was obtained. Photographs were taken. The cystic artery was directly behind the cystic duct. Two clips proximally and one clip distally were used to control both the cystic duct and cystic artery. The clips were carefully placed to avoid occluding the juncture with the common bile duct. Both the cystic duct and then the cystic artery were then transected with laparoscopic shen. The gallbladder was then removed from its fossa in a retrograde fashion using electrocautery. There was a small leak of bile only. With the 30 degree 5 mm scope in the subxiphoid position, the gallbladder was p laced in an EndoCatch bag to be extracted through the 12 mm port site. I irrigated the right upper quadrant with 2 liters of warm sterile saline, and the area was aspirated dry. I inspected the gallbladder fossa and there was no bleeding or bile leak. Clips on the cystic duct and cystic artery appeared to be secure. I briefly visually explored the abdomen. There was a small adhesion to the right abdominal wall but otherwise no evidence of overt pathology. I injected the port sites at the peritoneal, fascial, and skin levels under direct vision with 0.5% Marcaine. All ports and the EndoCatch containing the gallbladder were removed. Following gallbladder removal, the remaining carbon dioxide was expelled from the abdomen. The fascia at the umbilicus was reapproximated using 2 xkisep-xa-zjijo 0 Vicryl sutures. The skin at each port site was approximated using a subcuticular 4-0 Monocryl. The surgical count of instruments, needles and sponges was reported as correct twice. Mastisol, Steri-Strips and sterile surgical dressings were applied. The patient was then awakened from anesthesia, extubated, and having tolerated the procedure well, was transported to the recovery room. No complications were encountered. A "time out" confirmed the operation performed, the fluids given, the estimated blood loss and anesthesia, surgery and nursing were given an opportunity to express any concerns. 3seventyon disclaimer: This document was created in part using voice recognition technology. Because of the inherent limitations of the system ([employer] D[employer] user manual s tates that the licensee understands that speech recognition is a statistical process and that recognition errors are inherent in the process), occasional same sounding word substitutions and grammatical errors do occur and persist despite proofreading. Please read this document for context.
[2018-04-16] MEDS: HYDROmorphone 1 MG/ML CARPUJECT ONE ×2 (09:05→09:17)
[2018-04-16] MEDS ORDERED: HYDROmorphone 0.5 MG/0.5 ML SYRINGE ONE (09:35)
[2018-04-16] MEDS ORDERED: ACETAMINOPHEN 1,000 MG/100 ML 100 ML IV ONE (09:40)
[2018-04-16] MEDS ORDERED: LORazepam 2 MG/ML VIAL ONE (09:56)
[2018-04-16 12:39] VITALS: BP 115/70
== END 2018-04-16 06:05 | disposition home or self-care (01) ==
LOC: SDS 06:04
PROVIDERS: ATTEND Surgery
PROC: 0FT44ZZ Resection of Gallbladder, Percutaneous Endoscopic Approach (ICD-10-PCS; principal; 2018-04-16 07:30)
DX: K80.10 Calculus of gallbladder with chronic cholecystitis without obstruction (principal); G47.30 Sleep apnea, unspecified; Z87.891 Personal history of nicotine dependence
CPT/HCPCS: 47562; J0131; J0690; J1170; J2060; J7120

== ENCOUNTER 2018-04-21 23:27 | Emergency (ER) | payer MEDICAID ==
--- NOTE | 2018-04-22 00:32 | XRAY Report ---
Reason: no bm, s/p surgery Procedure Date: 04/22/2018 Accession Number: [id number] / [id number] Procedure: XR - Abdomen Acute CPT Code: FULL RESULT: EXAM: ABDOMINAL SERIES AND PA CHEST EXAM DATE: 04/22/2018 12:13 AM. CLINICAL HISTORY: No bm, s/p surgery. COMPARISON: CHEST 2 VIEW PA/LAT 06/21/2016 2:22 PM. TECHNIQUE: 2 views abdomen and 1 view chest. FINDINGS: CHEST: Lungs/Pleura: No focal opacities. No effusion or pneumothorax. Mediastinum: Within exam limitations, cardiomediastinal contour is normal. ABDOMEN: Bowel Gas Pattern: Large amount of stool throughout the colon to the rectum. Free Air: Free air under the diaphragm and possible free air in the expected location of the cholecystectomy bed. Other: Surgical clips from cholecystectomy. IMPRESSION: Large amount of stool throughout the colon to the rectum. Free air under the right diaphragm, and possible gas in the cholecystectomy bed, unusual for 5 days post cholecystectomy. Consider CT for further evaluation. RADIA
[2018-04-22] MEDS ORDERED: SODIUM CHLORIDE 0.9% 1,000 ML IV ONE (00:35)
[2018-04-22] MEDS ORDERED: ACETAMINOPHEN 1,000 MG/100 ML 100 ML IV STA (00:43)
[2018-04-22] MEDS ORDERED: METOCLOPRAMIDE 10 MG/2 ML VIAL IVP STA (00:43)
[2018-04-22 00:54] LABS: BASOPHILS # (AUTO) 0.1 10^3/uL (0.0-0.1); BASOPHILS % (AUTO) 0.5 %; EOSINOPHILS # (AUTO) 0.2 10^3/uL (0.0-0.7); EOSINOPHILS % (AUTO) 2.1 %; HGB - HEMOGLOBIN 13.3 g/dL (12.0-16.0); LYMPHOCYTES # (AUTO) 1.1 10^3/uL (1.5-3.5); MEAN CORPUSCULAR HEMOGLOBIN 26.2 pg (27.0-31.0); MEAN CORPUSCULAR HGB CONC 32.3 g/dL (32.0-36.0); MEAN CORPUSCULAR VOLUME 81.3 fL (81.0-99.0); MEAN PLATELET VOLUME 10.2 fL (7.9-10.8); MONOCYTES # (AUTO) 0.7 10^3/uL (0.0-1.0); MONOCYTES % (AUTO) 6.7 %; NEUTROPHILS # (AUTO) 8.5 10^3/uL (1.5-6.6); NEUTROPHILS % (AUTO) 80.7 %; PLT - PLATELET COUNT 170 10^3/uL (130-450); RED BLOOD COUNT 5.07 10^6/uL (4.20-5.40); RED CELL DISTRIBUTION WIDTH 14.4 % (12.0-15.0); WHITE BLOOD COUNT 10.6 x10^3/uL (4.8-10.8)
[2018-04-22 01:05] LABS: ALBUMIN 4.6 g/dL (3.2-5.5); ALBUMIN/GLOBULIN RATIO 1.6 (1.0-2.2); BILIRUBIN,TOTAL 0.4 mg/dL (0.2-1.0); CALCIUM 9.4 mg/dL (8.5-10.3); CREATININE 0.5 mg/dL (0.4-1.0); TOTAL PROTEIN 7.4 g/dL (6.7-8.2)
--- NOTE | 2018-04-22 02:06 | ED Physician Documentation ---
PD HPI ABD PAIN - Stated complaint Stated Complaint: CONSTIPATION S/P SURGERY - Chief complaint Chief Complaint: Abd Pain - Additional information Additional information: 37-year-old female who is status post a recent laparoscopic cholecystectomy presents the emergency department with constipation and diffuse abdominal pain which has progressively worsened over the past several days. The patient reports no significant improvement with [id number]-[id number] therapy. No focal area of abdominal pain. No vomiting. No other associated symptoms. Review of Systems Constitutional: denies: Fever, Fatigue Eyes: denies: Discharge Ears: denies: Ear pain Nose: denies: Congestion Cardiac: denies: Chest pain / pressure GI: reports: Abdominal Pain, Constipation. 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: section, Oophrectomy, LEEP (Cervical surgery) HEENT: Other - Present Medications Home Medications: Ambulatory Orders Medication Instructions Recorded Confirmed Minocycline HCl 100 mg PO DAILY 04/15/18 04/15/18 - Allergies Allergies/Adverse Reactions: Allergies Allergy/AdvReac Type Severity Reaction Status Date / Time ibuprofen Allergy Severe Edema Verified 04/09/18 19:17 iron AdvReac Nausea Verified 04/11/18 10:01 - Social History Does the pt smoke?: No Smoking Status: Never smoker Does the pt drink ETOH?: No Does the pt have substance abuse?: No - Immunizations Immunizations are current?: Yes - POLST Patient has POLST: No PD ED PE NORMAL - General General: Alert and oriented X 3 - HEENT HEENT: Atraumatic, PERRL, EOMI, Ears normal - Cardiac Cardiac: RRR, Strong equal pulses - Respiratory Respiratory: No respiratory distress, Clear bilaterally - Abdomen Abdomen: Soft, Non distended. No: Non tender (Generalized abdominal tenderness, no rebound or peritoneal signs) - Derm Derm: Normal color - Extremities Extremities: No deformity - Neuro Neuro: Alert and oriented X 3, Normal speech - Psych Psych: Normal mood Results - Vitals Vitals: Vital Signs - 24 hr 0204/22/18 04/22/18 23:31 01:02 01:17 Temperature 36.6 C Heart Rate 67 66 59 L Respiratory 16 18 16 Rate Blood Pressure 131/81 H 116/71 110/68 O2 Saturation 99 99 100 04/22/18 01:50 Temperature Heart Rate 69 Respiratory 16 Rate Blood Pressure 113/74 O2 Saturation 100 Oxygen O2 Source Room air - Labs Labs: Laboratory Tests 04/22/18 04/22/18 04/22/18 00:40 00:40 00:40 WBC 10.6 RBC 5.07 Hgb 13.3 Hct 41.2 MCV 81.3 MCH 26.2 L MCHC 32.3 RDW 14.4 Plt Count 170 MPV 10.2 Neut # (Auto) 8.5 H Lymph # (Auto) 1.1 L Wood # (Auto) 0.7 Eos # (Auto) 0.2 Baso # (Auto) 0.1 Absolute Nucleated RBC 0.00 Nucleated RBC % 0.0 Sodium 136 Potassium 3.6 Chloride 103 Carbon Dioxide 23 Anion Gap 10.0 BUN 17 Creatinine 0.5 Estimated GFR (MDRD) 138 Glucose 121 H Lactic Acid 1.1 Calcium 9.4 Total Bilirubin 0.4 AST 44 H ALT 55 Alkaline Phosphatase 53 Total Protein 7.4 Albumin 4.6 Globulin 2.8 Albumin/Globulin Ratio 1.6 Lipase 41 - Rads (name of study) CT abd/pelvis Radiology: Final report received, See rad report (IMPRESSION: Large amount of stool in the distal colon. Small amount of gas and fluid in the cholecystectomy bed, with small amounts of free intraperitoneal gas, likely postoperative in etiology. ) XR abdominal series Radiology: Final report received, See rad report (IMPRESSION: Large amount of stool throughout the colon to the rectum. Free air under the right diaphragm, and possible gas in the cholecystectomy bed, unusual for 5 days post cholecystectomy. Consider CT for further evaluation. ) PD MEDICAL DECISION MAKING - ED course ED course: A x-ray was ordered initially to rule out a small bowel obstruction.The patient's x-ray was abnormal and the radiologist recommended a CT scan, and lab work was also ordered after the x-ray and the radiologist recommendations. The lab work and CT scan do not show any acute abnormality that would necessitate emergent surgical intervention or admission to the hospital. The patient's stool burden was treated with a soapsuds enema and the patient had a large bowel movement and now feels much improved. Currently, the patient appears appropriate for discharge and ongoing outpatient management. The patient will follow up with primary care and general surgery. The patient will return to the emergency department for any worsening or any concerns Departure - Departure Disposition: 01 Home, Self Care Clinical Impression: Abdominal pain Qualifiers: Abdominal location: generalized Qualified Code(s): R10.84 - Generalized abdominal pain Constipation Qualifiers: Constipation type: unspecified constipation type Qualified Code(s): K59.00 - Constipation, unspecified Condition: Good Instructions: Abdominal Pain, ED Constipation Follow-Up: Waqar Ross MD [Primary Care Provider] - Within 1 week Comments: Please return to the ER for worsening symptoms or any concerns
[2018-04-22] MEDS ORDERED: IOVERSOL 320 100 ML VIAL IVP ONE ×2 (02:17→03:08)
[2018-04-22] MEDS ORDERED: SOAP SUDS ENEMA 1 EACH RC ONE (03:01)
--- NOTE | 2018-04-22 03:27 | CT Report ---
Reason: abdominal pain, s/p surgery Procedure Date: 04/22/2018 Accession Number: [id number] / [id number] Procedure: CT - Abdomen/Pelvis W CPT Code: FULL RESULT: EXAM: CT ABDOMEN AND PELVIS EXAM DATE: 04/22/2018 03:11 AM. CLINICAL HISTORY: Abdominal pain, s/p surgery. COMPARISONS: ABDOMEN ACUTE 04/21/2018 11:57 PM. TECHNIQUE: Routine helical CT imaging was performed through the abdomen and pelvis. IV contrast: 80ML OPTIRAY 320. Enteric contrast: No. Reconstructions: Coronal and sagittal. In accordance with CT protocol optimization, one or more of the following dose reduction techniques were utilized for this exam: automated exposure control, adjustment of mA and/or KV based on patient size, or use of iterative reconstructive technique. FINDINGS: Lung Bases: Unremarkable. Liver: Normal. No masses. Gallbladder/Bile Ducts: Postoperative changes of cholecystectomy. No biliary dilatation. Small amount of gas and fluid in the cholecystectomy bed. Spleen: Normal. Pancreas: Normal. Adrenal Glands: Normal. Kidneys: Normal. No masses or hydronephrosis. Peritoneal Cavity/Bowel: Small amounts of free intraperitoneal gas. Large amount of stool in the distal sigmoid colon and rectum. No small bowel dilatation. The appendix is well visualized and normal. Pelvic Organs: Normal. The bladder and visualized pelvic organs are within normal limits. Vasculature: No aneurysms or other significant abnormality. Bones: No significant abnormality. Other: None. IMPRESSION: Large amount of stool in the distal colon. Small amount of gas and fluid in the cholecystectomy bed, with small amounts of free intraperitoneal gas, likely postoperative in etiology. RADIA
[2018-04-22 03:41] VITALS: BP 126/70
== END 2018-04-22 03:45 | disposition home or self-care (01) ==
LOC: ED 23:27
DX: R10.84 Generalized abdominal pain (principal); K59.00 Constipation, unspecified; Z98.890 Other specified postprocedural states
CPT/HCPCS: 36415; 74022; 74177; 80053; 83605; 83690; 85025; 96365; 96375; 99283; 99284; A9270; J0131; J2765; Q9967

== ENCOUNTER 2018-08-21 16:13 | Outpatient (CLI) | payer MEDICAID ==
[2018-08-21 16:34] LABS: HGB - HEMOGLOBIN 12.6 g/dL (12.0-16.0); MEAN CORPUSCULAR HEMOGLOBIN 25.1 pg (27.0-31.0); MEAN CORPUSCULAR HGB CONC 29.9 g/dL (32.0-36.0); MEAN CORPUSCULAR VOLUME 83.9 fL (81.0-99.0); MEAN PLATELET VOLUME 11.6 fL (7.9-10.8); RED BLOOD COUNT 5.02 10^6/uL (4.20-5.40); RED CELL DISTRIBUTION WIDTH 13.7 % (12.0-15.0); WHITE BLOOD COUNT 6.7 x10^3/uL (4.8-10.8)
[2018-08-21 17:03] LABS: CHOL/HDL RATIO 2.3 (<4.4); CHOLESTEROL 173 mg/dL; HDL CHOLESTEROL 75 mg/dL; LDL CHOLESTEROL,CALCULATED 82 mg/dL; LDL/HDL RATIO 1.1 (<4.4); VLDL CHOLESTEROL 16 mg/dL
[2018-08-21 17:12] LABS: THYROID STIMULATING HORMONE 1.09 uIU/mL (0.34-5.60)
[2018-08-21 17:14] LABS: FREE T4 (FREE THYROXINE) 0.95 ng/dL (0.58-1.64)
[2018-08-21 17:19] LABS: HB2 TOTAL 13.2 g/dL; HEMOGLOBIN A1C 0.49 g/dL; HEMOGLOBIN A1C % 5.5 % (4.6-6.2)
[2018-08-22 13:42] LABS: HIV AG/AB 4TH GEN NON-REACTIVE (NON-REACTIVE)
== END 2018-08-21 16:14 | disposition home or self-care (01) ==
LOC: LAB 16:13
PROVIDERS: ATTEND Obstetrics & Gynecology
DX: Z00.00 Encounter for general adult medical examination without abnormal findings (principal); Z11.3 Encounter for screening for infections with a predominantly sexual mode of transmission
CPT/HCPCS: 36415; 80061; 81599; 83036; 83721; 84439; 84443; 85027; 86592; 87389

== ENCOUNTER → 2018-08-21 | Outpatient (CLI) | payer MEDICAID ==
[2018-08-22 18:35] LABS: CANDIDA GROUP DNA POSITIVE (NEGATIVE); CANDIDA KRUSEI DNA NEGATIVE (NEGATIVE); TRICHOMONAS VAGINALIS DNA NEGATIVE (NEGATIVE)
== END ==
LOC: LAB.R 16:10
PROVIDERS: ATTEND Obstetrics & Gynecology
DX: Z11.3 Encounter for screening for infections with a predominantly sexual mode of transmission (principal)
CPT/HCPCS: 87661; 87801

== ENCOUNTER 2018-10-30 11:39 | Emergency (ER) | payer SELFPAY ==
[2018-10-30 12:03] VITALS: BP 124/64
[2018-10-30] MEDS ORDERED: ACETAMINOPHEN 325 MG TABLET PO STA (12:33)
[2018-10-30] MEDS ORDERED: CHERRY SYRUP 10 ML UDC PO ONE (12:34)
[2018-10-30] MEDS ORDERED: DEXAMETHASONE 10 MG/ML VIAL PO STA (12:34)
--- NOTE | 2018-10-30 12:36 | ED Physician Documentation ---
PD HPI HEENT - Stated complaint Stated Complaint: SORE THROAT - Chief complaint Chief Complaint: Heent - History obtained from History obtained from: Patient - History of Present Illness Timing - onset: How many days ago (3) Timing - duration: Days (3) Timing - details: Gradual onset Location: Throat Worsens: Swalllowing Associated symptoms: Fever, Headache Similar symptoms before: Diagnosis (Strep throat less than 1 year ago.) - Additional information Additional information: The patient is a 38-year-old female who complains of sore throat that started 3 days ago and has been getting progressively worse. She reports associated fever, chills, headache, and earaches. She denies cough or abdominal pain. She has a history of similar symptoms with strep throat less than 1 year ago. Review of Systems Constitutional: reports: Fever, Chills, Myalgias Eyes: denies: Irritation Ears: reports: Ear pain (dull earaches bilaterally.) Nose: denies: Congestion Throat: reports: Sore throat Cardiac: denies: Chest pain / pressure Respiratory: denies: Dyspnea, Cough GI: denies: Abdominal Pain, Nausea, Vomiting : denies: Dysuria Skin: denies: Rash Musculoskeletal: denies: Back pain, Extremity pain Neurologic: reports: Headache. 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, Oophrectomy, LEEP (Cervical surgery) HEENT: Other - Present Medications Home Medications: Ambulatory Orders Medication Instructions Recorded Confirmed Minocycline HCl 100 mg PO DAILY 04/15/18 04/15/18 Penicillin V Potassium 500 mg PO Q6HR #40 tablet 10/30/18 - Allergies Allergies/Adverse Reactions: Allergies Allergy/AdvReac Type Severity Reaction Status Date / Time ibuprofen Allergy Severe Edema Verified 04/09/18 19:17 iron AdvReac Nausea Verified 04/11/18 10:01 - Social History Does the pt smoke?: No Smoking Status: Never smoker Does the pt drink ETOH?: No Does the pt have substance abuse?: No - Immunizations Immunizations are current?: Yes - POLST Patient has POLST: No PD ED PE NORMAL - Vitals Vital signs reviewed: Yes (normal) - General General: Alert and oriented X 3, Well developed/nourished - HEENT HEENT: Atraumatic, Ears normal, Other (Oropharynx is erythematous with exudates bilaterally.) - Neck Neck: Supple, no meningeal sign, Other (Mildly enlarged anterior cervical nodes bilaterally.) - Cardiac Cardiac: RRR - Respiratory Respiratory: No respiratory distress, Clear bilaterally - Abdomen Abdomen: Soft, Non tender - Back Back: No CVA TTP - Derm Derm: No rash - Extremities Extremities: No edema, No calf tenderness / cord - Neuro Neuro: Alert and oriented X 3, No motor deficit, Normal speech Results - Vitals Vitals: Vital Signs - 24 hr 10/30/18 11:57 Temperature 36.6 C Heart Rate 77 Respiratory 18 Rate Blood Pressure 124/64 O2 Saturation 99 Oxygen O2 Source Room air - Labs Labs: Laboratory Tests 10/30/18 10/30/18 12:02 12:50 Infectious Taliaferro Assay NEGATIVE Group A Strep Rapid Negative PD MEDICAL DECISION MAKING - ED course Complexity details: reviewed results, re-evaluated patient, considered differential, d/w patient ED course: The patient's presentation is most consistent with acute tonsillitis, with exudates. Rapid strep screen is negative, and Monospot is negative. Her presentation does not suggest peritonsillar abscess. Treatment in the emergency department included administration of acetaminophen 600 mg orally, and dexamethasone 10 mg orally. She is being discharged with a prescription for penicillin. I discussed with her the expected course of illness, symptomatic treatment and outpatient follow-up, as well as potentially worrisome signs or symptoms that should prompt reevaluation in the emergency department. Departure - Departure Disposition: 01 Home, Self Care Clinical Impression: Acute tonsillitis Qualifiers: Pharyngitis/tonsillitis etiology: unspecified etiology Qualified Code(s): J03.90 - Acute tonsillitis, unspecified Condition: Stable Instructions: ED Tonsillitis Follow-Up: Waqar Ross MD [Provider Admit Priv/Credential] - Prescriptions: Penicillin V Potassium 500 mg PO Q6HR #40 tablet Comments: Gargle with cool liquids. You can use acetaminophen, up to 650 mg 4 times daily if needed for fever or discomfort. Follow-up with your primary physician within 2 weeks if not completely resolved. Return to the emergency department if you develop increasing difficulty swallowing, or otherwise worsening symptoms. Discharge Date/Time: 10/30/18 13:40
== END 2018-10-30 13:40 | disposition home or self-care (01) ==
LOC: ED 11:39
DX: J03.90 Acute tonsillitis, unspecified (principal)
CPT/HCPCS: 86308; 87070; 87077; 87430; 99283; 99284; A9270

== ENCOUNTER 2019-06-18 08:00 | Outpatient (CLI) | payer MEDICAID, OTHER ==
[2019-06-18 11:56] LABS: BASOPHILS % (AUTO) 0.6 %; EOSINOPHILS # (AUTO) 0.2 10^3/uL (0.0-0.7); EOSINOPHILS % (AUTO) 4.5 %; HGB - HEMOGLOBIN 12.3 g/dL (12.0-16.0); LYMPHOCYTES # (AUTO) 1.2 10^3/uL (1.5-3.5); LYMPHOCYTES % (AUTO) 26.5 %; MEAN CORPUSCULAR HEMOGLOBIN 26.3 pg (27.0-31.0); MEAN CORPUSCULAR HGB CONC 31.1 g/dL (32.0-36.0); MEAN CORPUSCULAR VOLUME 84.6 fL (81.0-99.0); MEAN PLATELET VOLUME 12.8 fL (7.9-10.8); MONOCYTES # (AUTO) 0.5 10^3/uL (0.0-1.0); MONOCYTES % (AUTO) 10.6 %; NEUTROPHILS # (AUTO) 2.7 10^3/uL (1.5-6.6); NEUTROPHILS % (AUTO) 57.4 %; PLT - PLATELET COUNT 172 10^3/uL (130-450); RED BLOOD COUNT 4.67 10^6/uL (4.20-5.40); RED CELL DISTRIBUTION WIDTH 13.2 % (12.0-15.0); WHITE BLOOD COUNT 4.6 x10^3/uL (4.8-10.8)
[2019-06-18 12:18] LABS: ALBUMIN 4.2 g/dL (3.2-5.5); ALBUMIN/GLOBULIN RATIO 1.4 (1.0-2.2); ALKALINE PHOSPHATASE 36 IU/L (42-121); ALT ALANINE AMINOTRANSFERASE 26 IU/L (10-60); AST ASPARTATE AMINOTRANSFERASE 22 IU/L (10-42); BILIRUBIN,TOTAL 0.7 mg/dL (0.2-1.0); BUN - BLOOD UREA NITROGEN 13 mg/dL (6-20); CALCIUM 8.4 mg/dL (8.5-10.3); CARBON DIOXIDE - CO2 26 mmol/L (21-32); CHLORIDE 106 mmol/L (101-111); CHOLESTEROL 202 mg/dL; CREATININE 0.8 mg/dL (0.4-1.0); GLUCOSE 91 mg/dL (70-100); HDL CHOLESTEROL 67 mg/dL; LDL CHOLESTEROL,CALCULATED 112 mg/dL; LDL/HDL RATIO 1.7 (<4.4); MAGNESIUM 2.4 mg/dL (1.7-2.8); PHOSPHORUS 3.3 mg/dL (2.5-4.6); SODIUM 137 mmol/L (135-145); TOTAL PROTEIN 7.2 g/dL (6.7-8.2); VLDL CHOLESTEROL 23 mg/dL
[2019-06-18 12:42] LABS: FERRITIN 14.7 ng/mL (11.0-306.8)
[2019-06-18 13:04] LABS: FOLLICLE STIMULATING HORMONE 7.59 mIU/mL
[2019-06-18 13:05] LABS: LUTEINIZING HORMONE 5.21 mIU/mL
== END 2019-06-18 23:59 | disposition home or self-care (01) ==
LOC: LAB.WCP 08:00
PROVIDERS: ATTEND Physician Assistant Medical
DX: Z00.00 Encounter for general adult medical examination without abnormal findings (principal); R00.2 Palpitations; E55.9 Vitamin D deficiency, unspecified; N92.1 Excessive and frequent menstruation with irregular cycle; D50.9 Iron deficiency anemia, unspecified
CPT/HCPCS: 36415; 80053; 80061; 82306; 82670; 82728; 83001; 83002; 83721; 83735; 84100; 84443; 85025

== ENCOUNTER 2019-06-23 15:38 | Outpatient (CLI) | payer MEDICAID ==
--- NOTE | 2019-06-23 20:40 | Ultrasound Report ---
Reason: METRORRHAGIA Procedure Date: 06/23/2019 Accession Number: [id number] / [id number] Procedure: US - Pelvic w/Transvaginal CPT Code: Final Report FULL RESULT: EXAM: PELVIC ULTRASOUND EXAM DATE: 06/23/2019 03:52 PM. CLINICAL HISTORY: Menorrhagia. History of cervical cancer and cone biopsy. Right oophorectomy. Prior section. COMPARISON: ABDOMEN/PELVIS W/ 04/22/2018 2:56 AM PELVIC 05/29/2006 6:12 PM. TECHNIQUE: Realtime transabdominal pelvic scan performed to identify the uterus and adnexa and as an overview of other pelvic structures, followed by transvaginal scan to provide greater detail of the uterus and adnexa, with static image documentation. FINDINGS: Uterus: 10.2 x 5.9 x 6.8 cm, volume 211 cc. Anteverted position. Masses: There is a posterior subserosal versus peripheral intramural mass measuring 2.5 x 1.8 x 2.1 cm. There is an anterior questionable mass which is not well seen measuring 2.6 x 2.7 cm. Endometrium: 9 mm. The endometrium is heterogeneous. There is a hypoechoic area within the submucosal myometrium or endometrium of the anterior mid body of the uterus. There is increased vascularity. Margins are not well-defined. Cervix: There is a nabothian cyst measuring 7 mm in diameter. Right Ovary: Absent. Left Ovary: 3.6 x 2.7 x 4.2 cm, volume 21.3 cc. There is a cyst measuring 2.6 x 2.1 x 2.5 cm. Blood flow present on Doppler. Free Fluid: None. Other: None. IMPRESSION: 1. Heterogeneous and vascular area seen along the endometrial canal and submucosal central myometrium. Nonspecific finding with differential diagnosis including submucosal uterine fibroid, endometrial polyp, localized endometrial or myometrial scarring, not excluding neoplasm. 2. There are 2 peripheral uterine masses which are most likely fibroids. 3. 26 mm left ovarian cyst. Absent right ovary. RADIA
== END 2019-06-23 15:39 | disposition home or self-care (01) ==
LOC: DI 15:38
PROVIDERS: ATTEND Obstetrics & Gynecology
DX: N85.9 Noninflammatory disorder of uterus, unspecified (principal); N83.202 Unspecified ovarian cyst, left side; Z90.721 Acquired absence of ovaries, unilateral
CPT/HCPCS: 76830; 76856

== ENCOUNTER 2019-07-06 18:57 | Outpatient (CLI) | payer MEDICAID | END 2019-07-06 18:58 | disposition home or self-care (01) | LOC: COV 18:57 | PROVIDERS: ATTEND Family Medicine | DX: R50.9 Fever, unspecified (principal); R53.83 Other fatigue; J02.9 Acute pharyngitis, unspecified | CPT/HCPCS: 81599 ==

== ENCOUNTER 2019-08-11 16:39 | Outpatient (CLI) | payer MEDICAID ==
[2019-08-11 16:50] LABS: BASOPHILS % (AUTO) 0.6 %; EOSINOPHILS # (AUTO) 0.3 10^3/uL (0.0-0.7); EOSINOPHILS % (AUTO) 3.9 %; HGB - HEMOGLOBIN 12.5 g/dL (12.0-16.0); LYMPHOCYTES # (AUTO) 1.8 10^3/uL (1.5-3.5); LYMPHOCYTES % (AUTO) 25.8 %; MEAN CORPUSCULAR HEMOGLOBIN 26.2 pg (27.0-31.0); MEAN CORPUSCULAR HGB CONC 31.5 g/dL (32.0-36.0); MEAN CORPUSCULAR VOLUME 83.2 fL (81.0-99.0); MEAN PLATELET VOLUME 12.1 fL (7.9-10.8); MONOCYTES # (AUTO) 0.6 10^3/uL (0.0-1.0); MONOCYTES % (AUTO) 8.9 %; NEUTROPHILS # (AUTO) 4.1 10^3/uL (1.5-6.6); NEUTROPHILS % (AUTO) 60.4 %; PLT - PLATELET COUNT 194 10^3/uL (130-450); RED BLOOD COUNT 4.77 10^6/uL (4.20-5.40); RED CELL DISTRIBUTION WIDTH 13.1 % (12.0-15.0); WHITE BLOOD COUNT 6.9 x10^3/uL (4.8-10.8)
[2019-08-11 17:01] LABS: ALBUMIN 4.5 g/dL (3.2-5.5); ALBUMIN/GLOBULIN RATIO 1.6 (1.0-2.2); BILIRUBIN,TOTAL 0.6 mg/dL (0.2-1.0); CALCIUM 9.1 mg/dL (8.5-10.3); CREATININE 0.6 mg/dL (0.4-1.0); TOTAL PROTEIN 7.4 g/dL (6.7-8.2)
== END 2019-08-11 16:40 | disposition home or self-care (01) ==
LOC: LAB 16:39
PROVIDERS: ATTEND Obstetrics & Gynecology
DX: Z01.818 Encounter for other preprocedural examination (principal); N94.6 Dysmenorrhea, unspecified; D06.9 Carcinoma in situ of cervix, unspecified; Z20.828 Contact with and (suspected) exposure to other viral communicable diseases
CPT/HCPCS: 80053; 81599; 85025

== ENCOUNTER 2019-08-13 06:42 | Observation (INO) | payer MEDICAID ==
[~2019-08-13 06:42] MED LIST: LACTATED RINGERS 1,000 ML IV ONE
[2019-08-13 07:04] LABS: HCG UR QUAL NEGATIVE
[2019-08-13] MEDS ORDERED: BUPIVACAINE 0.25% PF 30 ML VIAL ONE (07:04)
--- NOTE | 2019-08-13 07:24 | ANESTHESIA ---
Pre-Anesthesia VS, & Labs - Diagnosis Abnormal bleeding - Procedure Lap Hysterectomy Vital Signs: Temp Pulse Resp BP Pulse Ox 36.4 C L 51 L 18 122/82 H 98 08/13/19 06:47 08/13/19 06:47 08/13/19 06:47 08/13/19 06:47 08/13/19 06:47 Height 5 ft 2 in Weight (kg) 74.2 kg Body Mass Index 25.6 - NPO >8 hours - Is Patient ?: No - Lab Results Lab results reviewed: Yes Home Medications and Allergies Active Medications Scopolamine HBr (Transderm-Scop) 1 patch TOP Q3D SALLIE Cholecalciferol [Vitamin D3] 2,000 unit PO DAILY 08/11/19 Multivitamin 1 each PO DAILY 08/11/19 Allergies/Adverse Reactions: Allergies Allergy/AdvReac Type Severity Reaction Status Date / Time ibuprofen Allergy Severe Edema Verified 04/09/18 19:17 Anes History & Medical History - Anesthetic History Anesthesia Complications: reports: No previous complications Family history of Anesthesia Complications: Denies Family history of Malignant Hyperthermia: Denies - Medical History Cardiovascular: reports: Other Pulmonary: reports: Sleep apnea Gastrointestinal: reports: None Urinary: reports: None Neuro: reports: None Musculoskeletal: reports: None Endocrine/Autoimmune: reports: None Blood Disorders: reports: None Skin: reports: None Smoking Status: Former smoker Psychosocial: reports: No issues indicated - Surgical History General: Cholecystectomy Eyes Ears Nose Throat (EENT): Other Gynecologic: section, Oophrectomy, LEEP (Cervical surgery) Exam General: Alert, Oriented x3 Dental: WNL Mouth Openin Fingerbreadth Mallampati classification: I Thyromental Distance: 4-6 cm Respiratory: Lungs clear Cardiovascular: Regular rate Mental/Cognitive Status: Alert/Oriented X3, Normal for patient Plan Anesthesia Type: General Consent for Procedure(s) Verified and Reviewed: Yes Code Status: Attempt Resuscitation ASA classification: 2-Mild systemic disease Is this case an emergency?: Yes
[2019-08-13] MEDS ORDERED: ROPIVACAINE 0.2% PF 20ML VIAL ONE (07:36)
[2019-08-13] MEDS ORDERED: ROPIVACAINE 0.5% PF 20 ML AMPULE ONE (07:37)
[2019-08-13] MEDS ORDERED: CEFAZOLIN SODIUM IN 0.9 % NACL 2 GM/100 ML BAG IV ONE (07:52)
[2019-08-13] MEDS ORDERED: SCOPOLAMINE PATCH TOP SCH (08:00)
[2019-08-13] MEDS ORDERED: ACETAMINOPHEN 1,000 MG/100 ML 100 ML IV ONE (08:05)
[2019-08-13] MEDS ORDERED: fentaNYL 100 MCG/2 ML VIAL IVP ONE (08:05)
[2019-08-13] MEDS ORDERED: LIDOCAINE-MPF 2% 5 ML VIAL IM ONE (08:05)
[2019-08-13] MEDS ORDERED: ePHEDrine 50 MG/ML VIAL IVP ONE (08:05)
[2019-08-13] MEDS ORDERED: GLYCOPYRROLATE 1 MG/5 ML VIAL IVP ONE (08:05)
[2019-08-13] MEDS ORDERED: DEXAMETHASONE 4 MG/ML VIAL IVP ONE (08:05)
[2019-08-13] MEDS ORDERED: ROCURONIUM 50 MG/5 ML VIAL IVP ONE (08:05)
[2019-08-13] MEDS ORDERED: MIDAZOLAM 2 MG/2 ML VIAL IVP ONE (08:05)
[2019-08-13] MEDS ORDERED: PROPOFOL 200 MG/20 ML VIAL IVP ONE (08:05)
[2019-08-13] MEDS ORDERED: ONDANSETRON 4 MG/2 ML VIAL IVP ONE (08:05)
[2019-08-13] MEDS ORDERED: NEOSTIGMINE 1 MG/1 ML 10 ML MDV IVP ONE (08:05)
[2019-08-13] MEDS ORDERED: BUPIVACAINE 0.25% PF 30 ML VIAL SUBQ ONE ×2 (08:45)
[2019-08-13] MEDS ORDERED: ONDANSETRON 4 MG/2 ML VIAL IVP PRN (11:38)
[2019-08-13] MEDS ORDERED: oxyCODONE 5 MG TABLET PO PRN (11:38)
--- NOTE | 2019-08-13 11:43 | OPERATIVE REPORT ---
Operative Report - General Procedure Date: 08/13/19 Planned Procedure: TLH with LS and cysto Pre-Op Diagnosis: Menorrhgia, History of KATE III Procedure Performed: TLH with LS and cysto Post Op Diagnosis: Same - Procedure Note Primary Surgeon: Marcos Gross MD Secondary Surgeon: Lamar Latham MD Anesthesia Provider: Sheik Jam GALINDO Anesthesia Technique: General ET tube, Regional block Pathology: Uterus with left tube IV Fluids (mL): 600 Estimated Blood Loss (mL): 125 Urine Output (mL): 650 - Other Other Information/Narrative: Dictated
[2019-08-13] MEDS ORDERED: LACTATED RINGERS 1,000 ML IV ONE (11:48)
[2019-08-13] MEDS: HYDROmorphone 0.5 MG/0.5 ML SYRINGE ONE ×3 (11:59→12:17)
[2019-08-13] MEDS ORDERED: HYDROmorphone 1 MG/ML CARPUJECT ONE (12:11)
[2019-08-13] MEDS: SCOPOLAMINE PATCH TOP SCH (12:44)
--- NOTE | 2019-08-13 13:08 | OPERATIVE REPORT ---
DATE OF SERVICE: 08/13/2019 Physician: Marcos Gross MD PREOPERATIVE DIAGNOSIS: Menorrhagia, history of KATE 3. POSTOPERATIVE DIAGNOSIS: Menorrhagia, history of KATE 3. PROCEDURE: Total laparoscopic hysterectomy with left salpingectomy, as well as cystoscopy. SURGEON: Marcos Gross MD NARROW GAUGE ENGINEER: Lamar Latham MD ANESTHESIA: Jam Simpson CRNA ANESTHETIC: General via endotracheal tube with a regional block. IV FLUIDS: 600 mL URINE OUTPUT: 650 mL ESTIMATED BLOOD LOSS: 125 mL. MATERIALS TO PATHOLOGY: The uterus, cervix, as well as the left tube. DESCRIPTION OF PROCEDURE: Following adequate endotracheal anesthesia, patient was placed in the dorsal lithotomy position and stirrups. At this point, a pelvic examination was performed and the uterus was palpated and noted to be roughly 10 cm in size. There is no adnexal enlargement. I reviewed the previous operative report and she only had thin filmy adhesions at time of her cholecystectomy in 2019. She was prepped and draped in the usual fashion. Following local anesthesia with 0.25% Marcaine without epinephrine in the subumbilical area, a #11 blade was used to incise vertically. A 5 mm trocar and sheath were placed under direct laparoscopic visualization. The trocar was removed and the scope was reinserted. There was evidence of adhesions, which were filmy to the anterior abdominal wall on the left omental side as well as the left paratubal and right adnexal area. The appendix appeared to be normal and free of disease. The liver margin was clear. At this point, 2 additional ports were placed, both in the left and right lower quadrants following local anesthesia with 0.25% Marcaine and skin incision with a #11 blade. The adhesions were taken down in the adnexal area, as well as the omental. There was an area that was periumbilical on the left hand side, it was fairly dense, and rather than cause more adhesions or bleeding it was decided to leave these in place as they were out of the operative field. The right round ligament was doubly cauterized and transected with the LigaSure. The broad leaf on right hand side was doubly cauterized and then transected. Then, a bladder flap was developed utilizing the LigaSure. There were some filmy adhesions from the bladder to the lower uterine segment, compatible with her previous section. The broad ligament was carried down to the internal os of the cervix. At this point, the uterine vessels were doubly cauterized and transected. The left side, the fallopian tube was grasped at its fimbriated end and then doubly cauterized and transected the LigaSure all the way to the cornu. The utero- ovarian ligament was doubly cauterized and transected with the LigaSure as well as the round ligament. The anterior leaf of the broad ligament was opened and then utilizing the LigaSure, this was transected all the way to the internal os. At this point, the bladder was pushed free from the lower uterine segment. The uterine vessels on the left hand side were isolated, cauterized and transected. At this point, the uterine manipulator was palpated through the anterior vaginal wall and then utilizing a Harmonic scalpel, the cervix was amputated from the apex of the vagina. Care was taken to avoid any injury to bowel. The uterus was then brought down into the vagina and left there to maintain a pneumoperitoneum. An endo stitch was attempted to be utilized to close the apex of the vagina; however, with the first application the needle bent and this was decided to proceed on with intracorporeal suturing with 0 V-Loc suture. This was carried out and there was evidence of a good closure of the apex of the vagina. The apex of the vagina was inspected for bleeding, none was noted, so at this point, the cystoscopy was performed. The Odom catheter was removed. Cystoscope 70 degrees was inserted. The entire bladder mucosa was scanned and there was no evidence of any sutures. There was evidence of good flow through both ureteral orifices at the time of the termination of the cystoscope. At this point, the right lower quadrant incision, which had been extended to a 10 mm was closed fascial area with a Luis-Cyn and then the 3 incisions were closed utilizing 4-0 Monocryl subcuticular. These were all injected with 0.25% Marcaine with epinephrine. The patient tolerated the procedure well and was taken to recovery in stable condition. Sponge and needle counts were correct. TD: 08/13/2019 11:54 GEMINI
[2019-08-13] MEDS: HYDROmorphone PCA 20MG/100ML IV PRN (13:09)
[2019-08-13] MEDS: HYDROcod/ACETAM 5/325 MG TABLET PO PRN (23:20)
[2019-08-14] MEDS: HYDROcod/ACETAM 5/325 MG TABLET PO PRN ×6 (03:23→21:46)
[2019-08-14] MEDS: HYDROmorphone PCA 20MG/100ML IV PRN (03:25)
--- NOTE | 2019-08-14 08:57 | PROVIDER PROGRESS NOTE ---
Subjective - General Procedure Date: 08/13/19 Post Op Days: 1 Procedure Performed: TLH with LS and cysto - Review of Systems Wound/Incisions: positive: Healing well, Dressing dry and intact, No drainage General: positive: Other (Pt C/O pain 06/11. had to increase hydrocodone to 10 mg q 4 hours not passing flatus Odom out.) Gastrointestinal: negative: Flatus Objective - Patient Data Reviewed Vital Signs: Yes Vital Signs: Vital Signs x48h Temp Pulse Resp BP Pulse Ox 08/14/19 08:02 37.4 C 51 L 20 98/55 L 97 08/14/19 07:03 16 08/14/19 06:07 16 08/14/19 05:11 18 08/14/19 04:30 12 08/14/19 03:25 36.4 C L 49 L 18 111/60 99 Weight: Weight 08/12/19 08/13/19 08/14/19 23:59 23:59 23:59 Weight (kg) 74.2 kg Intake & Output: Intake and Output Totals x24h 08/12/19 08/13/19 08/14/19 23:59 23:59 23:59 Intake Total 1550 500 Output Total 1875 1225 Balance -325 -725 - Current Medications Current Medications: Current Medications Generic Name Dose Route Start Last Admin Trade Name Freq PRN Reason Stop Dose Admin Hydromorphone HCl 0 mg 08/13/19 11:59 08/14/19 03:25 Dilaudid Inside Tester 20mg/100ml IV 0.2 mg PRN PRN Administration Abdominal Pain Protocol Scopolamine HBr 1 patch 08/13/19 08:00 08/13/19 12:44 Transderm-Scop TOP Not Given Q3D SALLIE - Physical Exam Wound/Incisions: positive: Dressing dry and intact, No drainage General Appearance: positive: Alert (C/O light headedness), Mild distress Respiratory: positive: Chest non-tender, No respiratory distress, Breath sounds nml Cardiovascular: positive: Regular rate & rhythm (50 B/M), No murmur, No gallop Abdomen: positive: Non-tender, No organomegaly, Nml bowel sounds, Tenderness (moderate) Back: negative: CVA tenderness (R), CVA tenderness (L) Skin: positive: Color nml, No rash, Warm, Dry Extremities: negative: Calf tenderness, Rain's sign/cords Neurologic/Psychiatric: positive: Oriented x3 Impression/Plan - Problem List Problem List: 1. POD #1 S/P TLH with LS and cysto 2. NSAID allergy. not able to give toradol. 3. difficulty with pain management. 4. History of bigeminy Plan 1. Incentive Sp 2. Stop SOFTWARE TESTER 3. increase to 2 hydrocodone Q4 hours 4. Start Mirilax. 5. Ambulate as tolerated. 6. Discharge when reaches criteria
[2019-08-14 09:31] LABS: BASOPHILS # (AUTO) 0.1 10^3/uL (0.0-0.1); BASOPHILS % (AUTO) 0.5 %; EOSINOPHILS # (AUTO) 0.4 10^3/uL (0.0-0.7); EOSINOPHILS % (AUTO) 3.4 %; HGB - HEMOGLOBIN 10.9 g/dL (12.0-16.0); LYMPHOCYTES # (AUTO) 1.8 10^3/uL (1.5-3.5); LYMPHOCYTES % (AUTO) 16.7 %; MEAN CORPUSCULAR HEMOGLOBIN 26.1 pg (27.0-31.0); MEAN CORPUSCULAR HGB CONC 31.2 g/dL (32.0-36.0); MEAN CORPUSCULAR VOLUME 83.5 fL (81.0-99.0); MEAN PLATELET VOLUME 11.8 fL (7.9-10.8); MONOCYTES # (AUTO) 0.7 10^3/uL (0.0-1.0); MONOCYTES % (AUTO) 6.5 %; NEUTROPHILS # (AUTO) 7.6 10^3/uL (1.5-6.6); NEUTROPHILS % (AUTO) 72.2 %; PLT - PLATELET COUNT 174 10^3/uL (130-450); RED BLOOD COUNT 4.18 10^6/uL (4.20-5.40); RED CELL DISTRIBUTION WIDTH 13.3 % (12.0-15.0); WHITE BLOOD COUNT 10.5 x10^3/uL (4.8-10.8)
[2019-08-14 09:39] LABS: ALBUMIN 3.6 g/dL (3.2-5.5); ALBUMIN/GLOBULIN RATIO 1.4 (1.0-2.2); BILIRUBIN,TOTAL 0.5 mg/dL (0.2-1.0); CALCIUM 8.5 mg/dL (8.5-10.3); CREATININE 0.8 mg/dL (0.4-1.0); TOTAL PROTEIN 6.2 g/dL (6.7-8.2)
[2019-08-14] MEDS: polyethylene glycoL 3350 17 GM PACKET PO PRN (10:56)
--- NOTE | 2019-08-14 18:44 | PROVIDER PROGRESS NOTE ---
Subjective - General Admit Date: 08/14/19 Procedure Date: 08/13/19 Post Op Days: 1 Procedure Performed: TLH with LS and cysto - Review of Systems Wound/Incisions: positive: Dressing dry and intact, No drainage General: positive: Other (While getting into bed she pulled her abdominal wall. noted sharp pain. 10/11. pain persisting. she is passing flatus and tolerating diet. taking oral pain meds.) Gastrointestinal: negative: Flatus Objective - Patient Data Reviewed Vital Signs: Yes Vital Signs: Vital Signs x48h Temp Pulse Resp BP Pulse Ox 08/14/19 16:33 36.9 C 56 L 16 126/53 L 98 Weight: Weight 08/12/19 08/13/19 08/14/19 23:59 23:59 23:59 Weight (kg) 74.2 kg Intake & Output: Intake and Output Totals x24h 08/12/19 08/13/19 08/14/19 23:59 23:59 23:59 Intake Total 1550 1040 Output Total 1875 2325 Balance -325 -1285 - Lab Results Lab Results: 08/14/19 09:19 08/14/19 09:19 Other Lab Results: Lab Results x24hrs 08/14/19 08/14/19 Range/Units 09:19 09:19 WBC 10.5 (4.8-10.8) x10^3/uL RBC 4.18 L (4.20-5.40) 10^6/uL Hgb 10.9 L (12.0-16.0) g/dL Hct 34.9 L (37.0-47.0) % MCV 83.5 (81.0-99.0) fL MCH 26.1 L (27.0-31.0) pg MCHC 31.2 L (32.0-36.0) g/dL RDW 13.3 (12.0-15.0) % Plt Count 174 (130-450) 10^3/uL MPV 11.8 H (7.9-10.8) fL Neut # (Auto) 7.6 H (1.5-6.6) 10^3/uL Lymph # (Auto) 1.8 (1.5-3.5) 10^3/uL [place] # (Auto) 0.7 (0.0-1.0) 10^3/uL Eos # (Auto) 0.4 (0.0-0.7) 10^3/uL Baso # (Auto) 0.1 (0.0-0.1) 10^3/uL Absolute Nucleated RBC 0.00 x10^3/uL Nucleated RBC % 0.0 /100WBC Sodium 136 (135-145) mmol/L Potassium 3.7 (3.5-5.0) mmol/L Chloride 100 L (101-111) mmol/L Carbon Dioxide 27 (21-32) mmol/L Anion Gap 9.0 (6-13) BUN 9 (6-20) mg/dL Creatinine 0.8 (0.4-1.0) mg/dL Estimated GFR (MDRD) 79 L (>89) Glucose 123 H (70-100) mg/dL Calcium 8.5 (8.5-10.3) mg/dL Total Bilirubin 0.5 (0.2-1.0) mg/dL AST 29 (10-42) IU/L ALT 41 (10-60) IU/L Alkaline Phosphatase 40 L (42-121) IU/L Total Protein 6.2 L (6.7-8.2) g/dL Albumin 3.6 (3.2-5.5) g/dL Globulin 2.6 (2.1-4.2) g/dL Albumin/Globulin Ratio 1.4 (1.0-2.2) - Current Medications Current Medications: Current Medications Generic Name Dose Route Start Last Admin Trade Name Freq PRN Reason Stop Dose Admin Hydrocodone Bitart/Acetaminophen 2 tab 08/14/19 08:54 08/14/19 17:53 [place] 5/325 PO 2 tab Q4HR PRN Administration PAIN Polyethylene Glycol 17 gm 08/14/19 08:50 08/14/19 10:56 Miralax PO 17 gm DAILY PRN Administration Bowel Protocol Scopolamine HBr 1 patch 08/13/19 08:00 08/13/19 12:44 Transderm-Scop TOP Not Given Q3D SALLIE - Physical Exam General Appearance: positive: Alert, Mild distress Impression/Plan - Problem List Problem List: POD # 1 slow progress. set back with pain control. Keep overnight Send home with Hydrocodone 10 mg # 25.
[2019-08-15] MEDS: HYDROcod/ACETAM 5/325 MG TABLET PO PRN ×2 (02:01→07:04)
--- NOTE | 2019-08-15 08:38 | PROVIDER PROGRESS NOTE ---
Subjective - General Admit Date: 08/14/19 Procedure Date: 08/13/19 Post Op Days: 2 Procedure Performed: TLH with LS and cysto - Review of Systems Wound/Incisions: positive: Dressing dry and intact, No drainage General: positive: Other (Pain markedly improved. 06/11. pain persisting. she is passing flatus and tolerating diet. taking oral pain meds. no stool yet) Gastrointestinal: negative: Flatus Objective - Patient Data Reviewed Vital Signs: Yes Vital Signs: Vital Signs x48h Temp Pulse Resp BP Pulse Ox 08/15/19 05:00 36.4 C L 60 16 105/53 L 98 Weight: Weight 08/13/19 08/14/19 08/15/19 23:59 23:59 23:59 Weight (kg) 74.2 kg Intake & Output: Intake and Output Totals x24h 08/13/19 08/14/19 08/15/19 23:59 23:59 23:59 Intake Total 1550 1040 Output Total 1875 2325 0 Balance -325 -1285 0 - Lab Results Lab Results: 08/14/19 09:19 08/14/19 09:19 Other Lab Results: Lab Results x24hrs 08/14/19 08/14/19 Range/Units 09:19 09:19 WBC 10.5 (4.8-10.8) x10^3/uL RBC 4.18 L (4.20-5.40) 10^6/uL Hgb 10.9 L (12.0-16.0) g/dL Hct 34.9 L (37.0-47.0) % MCV 83.5 (81.0-99.0) fL MCH 26.1 L (27.0-31.0) pg MCHC 31.2 L (32.0-36.0) g/dL RDW 13.3 (12.0-15.0) % Plt Count 174 (130-450) 10^3/uL MPV 11.8 H (7.9-10.8) fL Neut # (Auto) 7.6 H (1.5-6.6) 10^3/uL Lymph # (Auto) 1.8 (1.5-3.5) 10^3/uL [place] # (Auto) 0.7 (0.0-1.0) 10^3/uL Eos # (Auto) 0.4 (0.0-0.7) 10^3/uL Baso # (Auto) 0.1 (0.0-0.1) 10^3/uL Absolute Nucleated RBC 0.00 x10^3/uL Nucleated RBC % 0.0 /100WBC Sodium 136 (135-145) mmol/L Potassium 3.7 (3.5-5.0) mmol/L Chloride 100 L (101-111) mmol/L Carbon Dioxide 27 (21-32) mmol/L Anion Gap 9.0 (6-13) BUN 9 (6-20) mg/dL Creatinine 0.8 (0.4-1.0) mg/dL Estimated GFR (MDRD) 79 L (>89) Glucose 123 H (70-100) mg/dL Calcium 8.5 (8.5-10.3) mg/dL Total Bilirubin 0.5 (0.2-1.0) mg/dL AST 29 (10-42) IU/L ALT 41 (10-60) IU/L Alkaline Phosphatase 40 L (42-121) IU/L Total Protein 6.2 L (6.7-8.2) g/dL Albumin 3.6 (3.2-5.5) g/dL Globulin 2.6 (2.1-4.2) g/dL Albumin/Globulin Ratio 1.4 (1.0-2.2) - Current Medications Current Medications: Current Medications Generic Name Dose Route Start Last Admin Trade Name Freq PRN Reason Stop Dose Admin Hydrocodone Bitart/Acetaminophen 2 tab 08/14/19 08:54 08/15/19 07:04 [place] 5/325 PO 2 tab Q4HR PRN Administration PAIN Polyethylene Glycol 17 gm 08/14/19 08:50 08/14/19 10:56 Miralax PO 17 gm DAILY PRN Administration Bowel Protocol Scopolamine HBr 1 patch 08/13/19 08:00 08/13/19 12:44 Transderm-Scop TOP Not Given Q3D SALLIE - Physical Exam Wound/Incisions: positive: Healing well, Dressing dry and intact General Appearance: positive: No acute distress, Alert Respiratory: positive: Chest non-tender, No respiratory distress, Breath sounds nml Cardiovascular: positive: Regular rate & rhythm, No murmur, No gallop Abdomen: positive: Nml bowel sounds, No distention, Tenderness Back: negative: CVA tenderness (R), CVA tenderness (L) Extremities: negative: Calf tenderness, Rain's sign/cords Impression/Plan - Problem List Problem List: POD #2 Pain control much improved. no stool yet. Plan send home DC meds Hydrocodone 10 mg, # 25 Miralax 17 RTC 2 weeks.
[2019-08-15] MEDS: polyethylene glycoL 3350 17 GM PACKET PO PRN (08:39)
[2019-08-15] MEDS: SCOPOLAMINE PATCH TOP SCH (08:40)
--- NOTE | 2019-08-15 08:51 | Discharge Plan ---
Discharge Plan Problem Reviewed?: Yes Disposition: Home, Self Care Condition: Good Diet: Regular Activity Restrictions: pelvic rest Shower Restrictions: No Driving Restrictions: Yes (not while on pain medication) No Smoking: If you smoke, Please STOP! Call for help.
[2019-08-15 08:56] VITALS: BP 121/61
--- NOTE | 2019-08-15 12:26 | DISCHARGE SUMMARY ---
Physician: Marcos Gross MD DATE OF ADMISSION: 08/14/2019 DATE OF DISCHARGE: 08/15/2019 ADMITTING DIAGNOSES 1. Menorrhagia. 2. Dysmenorrhea. 3. History of bigeminy. DISCHARGE DIAGNOSES 1. Menorrhagia. 2. Dysmenorrhea. 3. History of bigeminy. PROCEDURES: Total laparoscopic hysterectomy with left salpingectomy and cystoscopy. PRESENTING HISTORY: Patient is a 39-year-old G4, P4 female who presents with menorrhagia as well as dysmenorrhea. She would soak pads. She previously had a LEEP procedure done for KATE 3. She was matthew eduled for earlier this year, but had to be postponed secondary to the COVID virus. Her history is p ositive for atrial fibrillation. She was seen by Cardiology and cleared for surgery. She also had a n endometrial biopsy as well as Pap smear, both of which were benign. LABORATORIES: Patient's white count was 6.9, postoperatively was 10.5, hemoglobin was 12.5, postop i t was 11.9, platelets remained stable. HOSPITAL COURSE: Patient was admitted and taken to the operating room, at which time a total laparos copic hysterectomy with left salpingectomy and cystoscopy was performed without incident. Her postop erative course was complicated with difficulty with pain control. Upon reviewing the history, she choi d a history of having had pain issues following her cholecystectomy. She also had difficulty with im paction secondary to narcotic use. She was placed on narcotics and Tylenol alone because of her CARLA RGY TO MOTRIN. It was felt that NSAIDs would be dangerous. She was placed on MiraLax postoperativel y to decrease the risk of impaction. She is being sent home today on hydrocodone 10 mg every 4-6 natalee rs as needed for pain. She has been instructed to take her MiraLax to decrease the risk of impaction . She is supposed to follow up in the clinic in 2 weeks. TD: 08/15/2019 08:48
== END 2019-08-15 09:37 | disposition home or self-care (01) ==
LOC: SDS 06:42 → MS3 12:41 → SDS 08-14 09:06 → INTOOBSV 08-14 09:07 → MS3 08-14 09:07 → UNDOADMOB 08-14 09:07
PROVIDERS: ADMIT Obstetrics & Gynecology; ATTEND Obstetrics & Gynecology
PROC: 0UB64ZZ Excision of Left Fallopian Tube, Percutaneous Endoscopic Approach (ICD-10-PCS; 2019-08-13)
PROC: 0UT94ZZ Resection of Uterus, Percutaneous Endoscopic Approach (ICD-10-PCS; principal; 2019-08-13 07:30)
DX: N94.6 Dysmenorrhea, unspecified (principal); N92.1 Excessive and frequent menstruation with irregular cycle; G47.30 Sleep apnea, unspecified; Z86.001 Personal history of in-situ neoplasm of cervix uteri; Z87.891 Personal history of nicotine dependence
CPT/HCPCS: 36415; 58571; 80053; 81025; 85025; 86850; 86900; 86901; A9270; G0378; J0131; J0690; J1170; J2795; J3490; J7120

== ENCOUNTER 2019-10-20 07:00 | Outpatient (CLI) | payer MEDICAID | END 2019-10-20 23:59 | disposition home or self-care (01) | LOC: LAB.R 07:00 | PROVIDERS: ATTEND Nurse Practitioner Family | DX: R05 Cough (principal); Z20.828 Contact with and (suspected) exposure to other viral communicable diseases ==

== ENCOUNTER 2020-03-01 07:00 | Outpatient (CLI) | payer MEDICAID | END 2020-03-01 23:59 | disposition home or self-care (01) | LOC: LAB.R 07:00 | PROVIDERS: ATTEND Family Medicine | DX: J06.9 Acute upper respiratory infection, unspecified (principal); Z20.828 Contact with and (suspected) exposure to other viral communicable diseases | CPT/HCPCS: 87070; 87275; 87276 ==

== ENCOUNTER 2020-07-05 18:33 | Emergency (ER) | payer MEDICAID ==
[2020-07-05 19:15] LABS: BILIRUBIN,URINE NEGATIVE (NEGATIVE); GLUCOSE, URINE (UA) NEGATIVE (NEGATIVE); KETONES,URINE (UA) NEGATIVE (NEGATIVE); LEUKOCYTE ESTERASE, URINE NEGATIVE (NEGATIVE); NITRITE,URINE NEGATIVE (NEGATIVE); OCCULT BLOOD,URINE NEGATIVE (NEGATIVE); PH,URINE 5.5 PH (5.0-7.5); PROTEIN,URINE NEGATIVE (NEGATIVE); UROBILINOGEN,URINE 0.2 (NORMAL) E.U./dL (NORMAL)
[2020-07-05 19:17] LABS: CLARITY,URINE CLEAR (CLEAR)
[2020-07-05] MEDS ORDERED: IOPAMIDOL-300 100 ML VIAL ONE (19:17)
[2020-07-05 19:23] LABS: BASOPHILS # (AUTO) 0.1 10^3/uL (0.0-0.1); BASOPHILS % (AUTO) 0.7 %; EOSINOPHILS # (AUTO) 0.3 10^3/uL (0.0-0.7); EOSINOPHILS % (AUTO) 4.7 %; HCT - HEMATOCRIT 44.9 % (37.0-47.0); HGB - HEMOGLOBIN 14.1 g/dL (12.0-16.0); LYMPHOCYTES # (AUTO) 2.2 10^3/uL (1.5-3.5); LYMPHOCYTES % (AUTO) 32.7 %; MEAN CORPUSCULAR HEMOGLOBIN 25.5 pg (27.0-31.0); MEAN CORPUSCULAR HGB CONC 31.4 g/dL (32.0-36.0); MEAN PLATELET VOLUME 12.1 fL (7.9-10.8); MONOCYTES # (AUTO) 0.6 10^3/uL (0.0-1.0); MONOCYTES % (AUTO) 8.2 %; NEUTROPHILS # (AUTO) 3.6 10^3/uL (1.5-6.6); NEUTROPHILS % (AUTO) 53.3 %; PLT - PLATELET COUNT 182 10^3/uL (130-450); RED BLOOD COUNT 5.54 10^6/uL (4.20-5.40); RED CELL DISTRIBUTION WIDTH 12.7 % (12.0-15.0); WHITE BLOOD COUNT 6.8 x10^3/uL (4.8-10.8)
--- NOTE | 2020-07-05 19:32 | ED Physician Documentation ---
PD HPI ABD PAIN - Stated complaint Stated Complaint: ABD PX - Chief complaint Chief Complaint: Abd Pain - History obtained from History obtained from: Patient - History of Present Illness Timing - duration: Weeks (1) Timing - details: Gradual onset, Intermittant, Waxing and waning Pain level max: 5 Pain level now: 4 Quality: Aching, Dull, Pain Associated symptoms: No: Nausea, Vomiting, Diarrhea, Constipation, Melena, Hematochezia, Dysuria, Hematuria - Additional information Additional information: 40-year-old female presents to the emergency department with right-sided abdominal pain for the past week. She states it comes and goes. Nothing makes it better or worse. Was seen at the walk-in clinic today and sent here for further evaluation. No nausea or vomiting. No diarrhea or constipation. Has had a total abdominal hysterectomy except for the left ovary. She describes the pain as aching and dull. Nonradiating. Has not had similar symptoms previously Review of Systems Constitutional: denies: Fever, Chills Respiratory: denies: Cough GI: denies: Vomiting, Diarrhea Skin: denies: Rash Musculoskeletal: denies: Neck pain, Back pain Neurologic: denies: Headache PD PAST MEDICAL HISTORY - Past Medical History Past Medical History: Yes Cardiovascular: Other Respiratory: Sleep apnea Neuro: None Endocrine/Autoimmune: None GI: None WORKSITE WELLNESS PRACTITIONER: None : None HEENT: None Psych: Depression, Anxiety, Claustrophobia Musculoskeletal: None Derm: None - Past Surgical History Past Surgical History: Yes General: Cholecystectomy /WORKSITE WELLNESS PRACTITIONER: section, Hysterectomy, Oophrectomy, LEEP (Cervical surgery) HEENT: Other - Present Medications Home Medications: Ambulatory Orders Medication Instructions Recorded Confirmed Multivitamin 1 each PO DAILY 08/11/19 07/05/20 Sertraline [Zoloft] 50 mg PO DAILY 07/05/20 07/05/20 - Allergies Allergies/Adverse Reactions: Allergies Allergy/AdvReac Type Severity Reaction Status Date / Time ibuprofen Allergy Severe Edema Verified 07/05/20 18:44 - Social History Does the pt smoke?: No Smoking Status: Former smoker Does the pt drink ETOH?: Yes Does the pt have substance abuse?: No - Immunizations Immunizations are current?: Yes - POLST Patient has POLST: No PD ED PE NORMAL - Vitals Vital signs reviewed: Yes - General General: Alert and oriented X 3, No acute distress, Well developed/nourished - HEENT HEENT: PERRL, Moist mucous membranes - Neck Neck: Supple, no meningeal sign - Cardiac Cardiac: RRR, Strong equal pulses - Respiratory Respiratory: No respiratory distress, Clear bilaterally - Abdomen Abdomen: Soft, Non distended, Other (Tenderness over the right flank. Able to point with 1 finger to the area of tenderness. No peritoneal signs. Otherwise normal exam) - Back Back: No CVA TTP, No spinal TTP - Derm Derm: Warm and dry - Extremities Extremities: No edema, No calf tenderness / cord - Neuro Neuro: Alert and oriented X 3 - Psych Psych: Normal mood, Normal affect Results - Vitals Vitals: Vital Signs - 24 hr 07/05/20 07/05/20 18:45 20:40 Temperature 36.6 C Heart Rate 60 80 Respiratory 18 17 Rate Blood Pressure 145/71 H 133/79 H O2 Saturation 99 98 Oxygen O2 Source Room air - Labs Labs: Laboratory Tests 07/05/20 07/05/20 07/05/20 19:10 19:16 19:16 WBC 6.8 RBC 5.54 H Hgb 14.1 Hct 44.9 MCV 81.0 MCH 25.5 L MCHC 31.4 L RDW 12.7 Plt Count 182 MPV 12.1 H Neut # (Auto) 3.6 Lymph # (Auto) 2.2 [place] # (Auto) 0.6 Eos # (Auto) 0.3 Baso # (Auto) 0.1 Absolute Nucleated RBC 0.00 Nucleated RBC % 0.0 Sodium 140 Potassium 3.7 Chloride 106 Carbon Dioxide 25 Anion Gap 9.0 BUN 14 Creatinine 0.8 Estimated GFR (MDRD) 79 L Glucose 95 Calcium 9.3 Total Bilirubin 0.7 AST 17 ALT 23 Alkaline Phosphatase 51 Total Protein 7.8 Albumin 4.6 Globulin 3.2 Albumin/Globulin Ratio 1.4 Lipase 38 Urine Color YELLOW Urine Clarity CLEAR Urine pH 5.5 Ur Specific [place] 1.010 Urine Protein NEGATIVE Urine Glucose (UA) NEGATIVE Urine Ketones NEGATIVE Urine Occult Blood NEGATIVE Urine Nitrite NEGATIVE Urine Bilirubin NEGATIVE Urine Urobilinogen 0.2 (NORMAL) Ur Leukocyte Esterase NEGATIVE Ur Microscopic Review NOT INDICATED Urine Culture Comments NOT INDICATED - Rads (name of study) CT abdomen and pelvis Radiology: Prelim report reviewed, EMP read contemporaneously, See rad report PD MEDICAL DECISION MAKING - ED course Complexity details: reviewed results, re-evaluated patient, considered differential, d/w patient ED course: 40-year-old female with right-sided abdominal pain of unclear etiology. Possible epiploic appendagitis? Patient is very well-appearing, nontoxic. Afebrile. No significant lab abnormalities. No acute findings on CT scan. Declines any pain medication here or for home. Patient counseled regarding signs and symptoms for which I believe and urgent re-evaluation would be necessary. Patient with good understanding of and agreement to plan and is comfortable going home at this time This document was made in part using voice recognition software. While efforts are made to proofread this document, sound alike and grammatical errors may occur. IMPRESSION: 1. Normal appendix. No bowel obstruction. No abnormal bowel wall thickening. No free fluid of free air. 2. Prior and cholecystectomy. 3. No renal stone or hydronephrosis. Normal-appearing bilateral ureters and urinary bladder. Departure - Departure Disposition: 01 Home, Self Care Clinical Impression: Abdominal pain Qualifiers: Abdominal location: unspecified location Qualified Code(s): R10.9 - Unspecified abdominal pain Condition: Good Instructions: ED Abdominal Pain Unkn Cause Follow-Up: Your,doctor in 1 week [Other] Comments: The cause of your symptoms is unclear today. Your CT scan does not show any acute abnormalities, nor does your blood work or urinalysis. This could be due to something known with epiploic appendagitis. This generally self resolves. Follow-up with your doctor in 1 week for repeat evaluation. Return if you worsen. Discharge Date/Time: 07/05/20 20:42
[2020-07-05 19:37] LABS: ALBUMIN 4.6 g/dL (3.2-5.5); ALBUMIN/GLOBULIN RATIO 1.4 (1.0-2.2); BILIRUBIN,TOTAL 0.7 mg/dL (0.2-1.0); CALCIUM 9.3 mg/dL (8.5-10.3); CREATININE 0.8 mg/dL (0.4-1.0); POTASSIUM 3.7 mmol/L (3.5-5.0); TOTAL PROTEIN 7.8 g/dL (6.7-8.2)
[2020-07-05] MEDS ORDERED: IOPAMIDOL-300 100 ML VIAL IVP ONE (20:12)
--- NOTE | 2020-07-05 20:23 | CT Report ---
PROCEDURE: Abdomen/Pelvis W INDICATIONS: RLQ/R flank pain CONTRAST: IV CONTRAST: Isovue 300 ml: 100 PO CONTRAST: *NO PO CONTRAST TECHNIQUE: After the administration of IV contrast, 5 mm thick sections acquired from the diaphragms to the symp hysis. 5 mm thick coronal and sagittal reformats were acquired. For radiation dose reduction, the f ollowing was used: automated exposure control, adjustment of mA and/or kV according to patient size. COMPARISON: 04/22/2018. FINDINGS: Image quality: Excellent. ABDOMEN: Lung bases: Lung bases are clear. Heart size is normal. Solid organs: Liver and spleen are normal in size and enhancement. Gallbladder is surgically absent . Biliary system is non dilated. Pancreas enhances normally. No adrenal nodules. Kidneys demonstr ate normal size and enhancement, without hydronephrosis. Peritoneum and bowel: Bowel loops demonstrate normal wall thickness and caliber. No free fluid or a ir. Appendix is visualized and is within normal limits. No abscess collection. No significant fecal burden. Nodes and vessels: No retroperitoneal or mesenteric adenopathy by size criteria. Aorta and inferior vena cava are normal in size. Miscellaneous: No ventral hernias. PELVIS: Genitourinary: Bladder wall thickness is normal. Miscellaneous: No inguinal hernias or adenopathy. Bones: No suspicious bony lesions. No vertebral body compression fractures. Grade 1 anterolisthesi s of L4 on L5 is seen. Minimal retrolisthesis of L3 on L4 is also noted. This is not significantly ch anged from prior study. IMPRESSION: 1. Normal appendix. No bowel obstruction. No abnormal bowel wall thickening. No free fluid of free ai r. 2. Prior and cholecystectomy. 3. No renal stone or hydronephrosis. Normal-appearing bilateral ureters and urinary bladder. Reviewed by: Georges Johnson MD on 07/05/2020 8:21 PM PDT Approved by: Georges Johnson MD on 07/05/2020 8:21 PM PDT Station ID: [id number]
[2020-07-05 20:54] VITALS: BP 133/79
== END 2020-07-05 20:42 | disposition home or self-care (01) ==
LOC: ED 18:33
DX: R10.9 Unspecified abdominal pain (principal); Z90.49 Acquired absence of other specified parts of digestive tract; Z87.891 Personal history of nicotine dependence
CPT/HCPCS: 36415; 74177; 80053; 81003; 83690; 85025; 99284; Q9967; 81001; 87086

== ENCOUNTER 2020-11-15 16:08 | Emergency (ER) | payer MEDICAID ==
[2020-11-15 18:47] LABS: RAPID STREP SCREEN Negative (Negative)
[2020-11-15] MEDS ORDERED: PENICILLIN VK 250 MG TABLET PO STA (18:53)
[2020-11-15] MEDS ORDERED: ACETAMINOPHEN 325 MG TABLET PO STA (18:53)
[2020-11-15] MEDS ORDERED: CHERRY SYRUP 10 ML UDC PO ONE (18:53)
[2020-11-15] MEDS ORDERED: DEXAMETHASONE 10 MG/ML VIAL PO STA (18:53)
--- NOTE | 2020-11-15 18:55 | ED Physician Documentation ---
History of Present Illness - Stated complaint Stated Complaint: HEADACHE/SORE THROAT/CHILLS/WOREOUT - Chief complaint Chief Complaint: Heent - History obtained from History obtained from: Patient - History of Present Illness Timing: Other (1 month) Pain level max: 5 - Additonal information Additional information: Patient is a 40-year-old female who states that she is been having swelling to the right tonsil for about the past month. Has been increasing in size and pain over the past week or so. No fevers. No chills. She states she has noticed pus draining from the tonsil. Worse with eating and drinking. Nothing makes it better. No weight loss. No changes in her voice. 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 WAVE ASSEMBLER: None : None HEENT: None Psych: Depression, Anxiety, Claustrophobia Musculoskeletal: None Derm: None - Past Surgical History Past Surgical History: Yes General: Cholecystectomy /PRE WAVE ASSEMBLER: section, Hysterectomy, Oophrectomy, LEEP (Cervical surgery) HEENT: Other - Present Medications Home Medications: Ambulatory Orders Medication Instructions Recorded Confirmed Multivitamin 1 each PO DAILY 08/11/19 07/05/20 Sertraline [Zoloft] 50 mg PO DAILY 07/05/20 07/05/20 Penicillin V Potassium 500 mg PO Q6HR #40 tablet 11/15/20 - Allergies Allergies/Adverse Reactions: Allergies Allergy/AdvReac Type Severity Reaction Status Date / Time ibuprofen Allergy Severe Edema Verified 11/15/20 16:31 - Social History Does the pt smoke?: No Smoking Status: Never smoker Does the pt drink ETOH?: Yes Does the pt have substance abuse?: No - Immunizations Immunizations are current?: Yes - POLST Patient has POLST: No PD ED PE NORMAL - Vitals Vital signs reviewed: Yes - General General: Alert and oriented X 3, No acute distress, Well developed/nourished - HEENT HEENT: PERRL, Moist mucous membranes, Other (Erythematous swollen right tonsil, uvula midline. Exudates present. Normal phonation. No trismus.) - Neck Neck: Supple, no meningeal sign, No adenopathy - Cardiac Cardiac: RRR, Strong equal pulses - Respiratory Respiratory: No respiratory distress, Clear bilaterally - Abdomen Abdomen: Soft, Non tender, Non distended - Derm Derm: Warm and dry - Neuro Neuro: Alert and oriented X 3 - Psych Psych: Normal mood, Normal affect Results - Vitals Vitals: Oxygen O2 Source Room air - Labs Labs: Microbiology 11/15/20 18:31 Group A Strep Throat Culture - Preliminary Throat CULTURE IN PROGRESS. RESULTS TO FOLLOW. Laboratory Tests 11/15/20 18:31 Group A Strep Rapid Negative PD MEDICAL DECISION MAKING - ED course Complexity details: considered differential, d/w patient ED course: Patient with what appears to be tonsillitis, given the length of time this been ongoing, recommend that she follow-up with ENT for further evaluation. Will prescribe antibiotics and have her follow-up with her doctor and ENT. Patient is well-appearing, nontoxic. No evidence of retropharyngeal or peritonsillar abscess. Patient counseled regarding signs and symptoms for which I believe and urgent re-evaluation would be necessary. Patient with good understanding of and agreement to plan and is comfortable going home at this time This document was made in part using voice recognition software. While efforts are made to proofread this document, sound alike and grammatical errors may occur. Departure - Departure Disposition: 01 Home, Self Care Clinical Impression: Tonsillitis Condition: Good Instructions: ED Tonsillitis Follow-Up: Alo Sonw DO [Primary Care Provider] - [facility] [Provider Group] Prescriptions: Penicillin V Potassium 500 mg PO Q6HR #40 tablet Comments: Take all antibiotics until gone. Please follow-up with ENT for further evaluation. Call their office for an appointment. Return if you worsen. Your prescription was sent to [facility] in [place]. Discharge Date/Time: 11/15/20 19:12
[2020-11-15 19:21] VITALS: BP 137/81
== END 2020-11-15 19:12 | disposition home or self-care (01) ==
LOC: ED 16:08
DX: J03.90 Acute tonsillitis, unspecified (principal)
CPT/HCPCS: 87070; 87430; 99283; A9270

== ENCOUNTER 2020-11-25 15:23 | Outpatient (CLI) | payer MEDICAID ==
[2020-11-25 17:45] LABS: BASOPHILS # (AUTO) 0.1 10^3/uL (0.0-0.1); BASOPHILS % (AUTO) 0.9 %; EOSINOPHILS # (AUTO) 0.3 10^3/uL (0.0-0.7); EOSINOPHILS % (AUTO) 3.7 %; HGB - HEMOGLOBIN 13.9 g/dL (12.0-16.0); LYMPHOCYTES # (AUTO) 1.8 10^3/uL (1.5-3.5); LYMPHOCYTES % (AUTO) 21.9 %; MEAN CORPUSCULAR HEMOGLOBIN 25.1 pg (27.0-31.0); MEAN CORPUSCULAR HGB CONC 30.2 g/dL (32.0-36.0); MEAN CORPUSCULAR VOLUME 83.2 fL (81.0-99.0); MEAN PLATELET VOLUME 12.8 fL (7.9-10.8); MONOCYTES # (AUTO) 0.5 10^3/uL (0.0-1.0); MONOCYTES % (AUTO) 6.7 %; NEUTROPHILS # (AUTO) 5.3 10^3/uL (1.5-6.6); NEUTROPHILS % (AUTO) 66.3 %; PLT - PLATELET COUNT 205 10^3/uL (130-450); RED BLOOD COUNT 5.53 10^6/uL (4.20-5.40); RED CELL DISTRIBUTION WIDTH 12.7 % (12.0-15.0)
[2020-11-25 18:00] LABS: ALBUMIN 4.6 g/dL (3.2-5.5); ALBUMIN/GLOBULIN RATIO 1.4 (1.0-2.2); BILIRUBIN,TOTAL 0.6 mg/dL (0.2-1.0); CALCIUM 9.3 mg/dL (8.5-10.3); CREATININE 0.7 mg/dL (0.4-1.0); POTASSIUM 3.8 mmol/L (3.5-5.0); TOTAL PROTEIN 7.8 g/dL (6.7-8.2)
[2020-11-25 18:12] LABS: THYROID STIMULATING HORMONE 1.38 uIU/mL (0.34-5.60)
== END 2020-11-25 15:24 | disposition home or self-care (01) ==
LOC: LAB.N 15:23
PROVIDERS: ATTEND Family Medicine
DX: I10 Essential (primary) hypertension (principal)
CPT/HCPCS: 36415; 80053; 84443; 85025

== ENCOUNTER 2021-01-17 08:32 | Outpatient (CLI) | payer MEDICAID ==
[2021-01-17 12:32] LABS: ESTIMATED AVERAGE GLUCOSE 105 mg/dL (70-100); HEMOGLOBIN A1c% 5.3 % (4.27-6.07)
[2021-01-17 12:44] LABS: ALBUMIN 4.5 g/dL (3.2-5.5); ALBUMIN/GLOBULIN RATIO 1.6 (1.0-2.2); BILIRUBIN,TOTAL 0.6 mg/dL (0.2-1.0); CALCIUM 9.7 mg/dL (8.5-10.3); CREATININE 0.9 mg/dL (0.4-1.0); POTASSIUM 4.1 mmol/L (3.5-5.0); TOTAL PROTEIN 7.4 g/dL (6.7-8.2)
[2021-01-17 13:00] LABS: THYROID STIMULATING HORMONE 1.47 uIU/mL (0.34-5.60)
== END 2021-01-17 23:59 | disposition home or self-care (01) ==
LOC: LAB.WCP 08:32
PROVIDERS: ATTEND Family Medicine
DX: G56.90 Unspecified mononeuropathy of unspecified upper limb (principal)
CPT/HCPCS: 36415; 80053; 83036; 83921; 84443

== ENCOUNTER 2021-02-08 13:59 | Outpatient (CLI) | payer MEDICAID ==
[2021-02-08] MEDS ORDERED: GADOBUTROL 10 MMOL/10 ML VIAL ONE (14:12)
[2021-02-08] MEDS: GADOBUTROL 10 MMOL/10 ML VIAL IVP ONE (14:24)
--- NOTE | 2021-02-08 15:07 | MRI Report ---
PROCEDURE: Brain W/WO INDICATIONS: PARESTHESIA CONTRAST: IV CONTRAST: Gadavist ml: 7.7 TECHNIQUE: Noncontrast axial T1 spin echo, axial T2 fast spin echo, sagittal and axial FLAIR, coronal T2 fast sp in echo, axial gradient echo, axial diffusion and ADC through the brain. After the administration of contrast, axial and coronal T1 spin echo with fat saturation through the brain. COMPARISON: MRI dated 07/14/2016 FINDINGS: Image quality: Excellent. CSF spaces: Basal cisterns are patent. No extra-axial fluid collections. Ventricles are normal in size and shape. Brain: No midline shift. No intracranial bleeds. There is an increased, avidly enhancing dural base d extra-axial focus along the planum sphenoidale, mid measuring roughly 10 mm anteroposterior by 6 mm transverse by 4 mm craniocaudal. Enhancing dural tails are present anteriorly and posteriorly. Cereb ral and cerebellar signal intensity is within normal limits. No abnormal white matter disease. The br ainstem appears normal. Diffusion-weighted images demonstrate no acute ischemic insults. No chronic ischemic insults. Normal intravascular flow voids are present. Skull and face: Calvarial marrow is normal in signal. Orbits appear normal. Sinuses: Sinuses and mastoids appear clear. IMPRESSION: 1. Increased, small meningioma along the planum sphenoidale. 2. Otherwise negative brain MRI. No acute process. No recent infarct. Reviewed by: Opal Burnham MD on 02/08/2021 3:06 PM [facility] Approved by: Opal Burnham MD on 02/08/2021 3:06 PM PST Station ID: [id number]
== END 2021-02-08 14:00 | disposition home or self-care (01) ==
LOC: DI 13:59
PROVIDERS: ATTEND Family Medicine
DX: R20.2 Paresthesia of skin (principal); D32.0 Benign neoplasm of cerebral meninges
CPT/HCPCS: 70553; A9585

== ENCOUNTER 2021-09-03 21:45 | Emergency (ER) | payer MEDICAID ==
[2021-09-03 22:43] LABS: BASOPHILS # (AUTO) 0.1 10^3/uL (0.0-0.1); BASOPHILS % (AUTO) 0.8 %; EOSINOPHILS # (AUTO) 0.4 10^3/uL (0.0-0.7); EOSINOPHILS % (AUTO) 5.3 %; HCT - HEMATOCRIT 39.3 % (37.0-47.0); HGB - HEMOGLOBIN 12.2 g/dL (12.0-16.0); LYMPHOCYTES # (AUTO) 2.3 10^3/uL (1.5-3.5); LYMPHOCYTES % (AUTO) 34.8 %; MEAN CORPUSCULAR HEMOGLOBIN 25.4 pg (27.0-31.0); MEAN CORPUSCULAR VOLUME 81.7 fL (81.0-99.0); MEAN PLATELET VOLUME 12.8 fL (7.9-10.8); MONOCYTES # (AUTO) 0.6 10^3/uL (0.0-1.0); MONOCYTES % (AUTO) 8.3 %; NEUTROPHILS # (AUTO) 3.3 10^3/uL (1.5-6.6); NEUTROPHILS % (AUTO) 50.5 %; PLT - PLATELET COUNT 185 10^3/uL (130-450); RED BLOOD COUNT 4.81 10^6/uL (4.20-5.40); RED CELL DISTRIBUTION WIDTH 12.7 % (12.0-15.0); WHITE BLOOD COUNT 6.6 x10^3/uL (4.8-10.8)
--- NOTE | 2021-09-03 22:51 | ED Physician Documentation ---
History of Present Illness - Stated complaint Stated Complaint: SORE THROAT,PALPITATIONS - Chief complaint Chief Complaint: General - History obtained from History obtained from: Patient - History of Present Illness Timing: Today Improved by: no ameliorating factors Worsened by: lightheadedness is exacerbated when standing - Additonal information Additional information: chief complaint is sore throat since this morning, gradually increasing pain that has subsequently spread to right ear. She also notes light headedness/dizziness with standing. 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: None : None HEENT: None Psych: Depression, Anxiety, Claustrophobia Musculoskeletal: None Derm: None - Past Surgical History Past Surgical History: Yes General: Cholecystectomy /STONE CHIMNEY MASON: section, Hysterectomy, Oophrectomy, LEEP (Cervical surgery) HEENT: Other - Present Medications Home Medications: Ambulatory Orders Medication Instructions Recorded Confirmed Multivitamin 1 each PO DAILY 08/11/19 07/05/20 Sertraline [Zoloft] 50 mg PO DAILY 07/05/20 07/05/20 Penicillin V Potassium 500 mg PO Q6HR #40 tablet 11/15/20 Penicillin V Potassium 500 mg PO Q6HR #40 tablet 09/05/21 - Allergies Allergies/Adverse Reactions: Allergies Allergy/AdvReac Type Severity Reaction Status Date / Time ibuprofen Allergy Severe Edema Verified 09/03/21 21:53 - Social History Does the pt smoke?: No Smoking Status: Never smoker Does the pt drink ETOH?: Yes Does the pt have substance abuse?: No - Immunizations Immunizations are current?: Yes - POLST Patient has POLST: No PD ED PE NORMAL - Vitals Vital signs reviewed: Yes - General General: Alert and oriented X 3, No acute distress, Well developed/nourished - Neck Neck: Supple, no meningeal sign - Cardiac Cardiac: No murmur - Respiratory Respiratory: No respiratory distress, Clear bilaterally PD ED PE EXPANDED - HEENT HEENT: Ears normal, Pharyngeal erythema, Swollen tonsils (R>L). No: Tonsillar exudate - Cardiac Cardiac: Rahat, Regular Rhythm Results - Vitals Vitals: Oxygen O2 Source Room air - EKG (time done) No standard instances Rate: Rate (enter#) (46) Rhythm: Sinus bradycardia [place]: Normal Intervals: Normal MA QRS: Normal Ischemia: Normal ST segments - Labs Labs: Microbiology 09/03/21 23:08 Group A Strep Throat Culture - Final Throat Beta Hemolytic Strep Group F Beta Hemolytic Strep Group G Laboratory Tests 09/03/21 09/03/21 09/03/21 20:38 20:38 20:38 WBC 6.6 RBC 4.81 Hgb 12.2 Hct 39.3 MCV 81.7 MCH 25.4 L MCHC 31.0 L RDW 12.7 Plt Count 185 MPV 12.8 H Neut # (Auto) 3.3 Lymph # (Auto) 2.3 [place] # (Auto) 0.6 Eos # (Auto) 0.4 Baso # (Auto) 0.1 Absolute Nucleated RBC 0.00 Nucleated RBC % 0.0 Sodium 138 Potassium 4.1 Chloride 103 Carbon Dioxide 29 Anion Gap 6.0 BUN 11 Creatinine 0.8 Estimated GFR (MDRD) 79 L Glucose 97 Calcium 9.4 Total Bilirubin < 0.2 L AST 14 ALT 16 Alkaline Phosphatase 41 L Troponin I High Sens 3.8 Total Protein 6.7 Albumin 4.0 Globulin 2.7 Albumin/Globulin Ratio 1.5 Lipase 36 Group A Strep Rapid 09/03/21 23:08 WBC RBC Hgb Hct MCV MCH MCHC RDW Plt Count MPV Neut # (Auto) Lymph # (Auto) [place] # (Auto) Eos # (Auto) Baso # (Auto) Absolute Nucleated RBC Nucleated RBC % Sodium Potassium Chloride Carbon Dioxide Anion Gap BUN Creatinine Estimated GFR (MDRD) Glucose Calcium Total Bilirubin AST ALT Alkaline Phosphatase Troponin I High Sens Total Protein Albumin Globulin Albumin/Globulin Ratio Lipase Group A Strep Rapid Negative PD MEDICAL DECISION MAKING - ED course Complexity details: reviewed results, re-evaluated patient, considered differential, d/w patient Departure - Departure Disposition: 01 Home, Self Care Clinical Impression: Bradycardia Pharyngitis Qualifiers: Pharyngitis/tonsillitis etiology: unspecified etiology Qualified Code(s): J02.9 - Acute pharyngitis, unspecified Condition: Good Instructions: ED Bradycardia, ED Pharyngitis Viral Report Pending Prescriptions: Penicillin V Potassium 500 mg PO Q6HR #40 tablet Comments: The results of tonight's tests are unremarkable. The cause of your symptoms is not apparent at this time. Your heart rate is low but your blood pressures were normal during your ER stay. The blood tests had no concerning or diagnostic fi ndings and your strep test was negative. Discharge Date/Time: 09/04/21 01:10
[2021-09-03 22:59] LABS: ALBUMIN/GLOBULIN RATIO 1.5 (1.0-2.2); ALKALINE PHOSPHATASE 41 IU/L (42-121); ALT ALANINE AMINOTRANSFERASE 16 IU/L (10-60); AST ASPARTATE AMINOTRANSFERASE 14 IU/L (10-42); BILIRUBIN,TOTAL < 0.2 mg/dL (0.2-1.0); CALCIUM 9.4 mg/dL (8.5-10.3); CARBON DIOXIDE - CO2 29 mmol/L (21-32); CHLORIDE 103 mmol/L (101-111); CREATININE 0.8 mg/dL (0.4-1.0); GFR - MDRD 79 (>89); GLUCOSE 97 mg/dL (70-100); LIPASE 36 U/L (22-51); POTASSIUM 4.1 mmol/L (3.5-5.0); SODIUM 138 mmol/L (135-145); TOTAL PROTEIN 6.7 g/dL (6.7-8.2)
[2021-09-03 23:11] LABS: BUN - BLOOD UREA NITROGEN 11 mg/dL (6-20)
[2021-09-03 23:24] LABS: RAPID STREP SCREEN Negative (Negative)
[2021-09-04 01:11] VITALS: BP 135/72
--- NOTE | 2021-09-05 13:53 | ED Physician Documentation ---
ED Addendum - Addendum Addendum: 09/05/21 13:52 Patient throat culture came back for group F and group G strep. We will prescribe her penicillin. This was sent to [facility]. Departure - Departure Disposition: 01 Home, Self Care Clinical Impression: Bradycardia Pharyngitis Qualifiers: Pharyngitis/tonsillitis etiology: unspecified etiology Qualified Code(s): J02.9 - Acute pharyngitis, unspecified Condition: Good Instructions: ED Bradycardia, ED Pharyngitis Viral Report Pending Prescriptions: Penicillin V Potassium 500 mg PO Q6HR #40 tablet Comments: The results of tonight's tests are unremarkable. The cause of your symptoms is not apparent at this time. Your heart rate is low but your blood pressures were normal during your ER stay. The blood tests had no concerning or diagnostic findings and your strep test was negative. Discharge Date/Time: 09/04/21 01:10
== END 2021-09-04 01:10 | disposition home or self-care (01) ==
LOC: ED 21:45
DX: R00.1 Bradycardia, unspecified (principal); J02.9 Acute pharyngitis, unspecified
CPT/HCPCS: 36415; 80053; 83690; 84484; 85025; 87070; 87077; 87430; 93005; 99283; 99284

== ENCOUNTER 2021-12-29 08:12 | Outpatient (CLI) | payer MEDICAID ==
[2021-12-29 12:06] LABS: BASOPHILS # (AUTO) 0.1 10^3/uL (0.0-0.1); BASOPHILS % (AUTO) 0.8 %; EOSINOPHILS # (AUTO) 0.3 10^3/uL (0.0-0.7); EOSINOPHILS % (AUTO) 5.3 %; HCT - HEMATOCRIT 43.3 % (37.0-47.0); HGB - HEMOGLOBIN 13.6 g/dL (12.0-16.0); LYMPHOCYTES # (AUTO) 1.8 10^3/uL (1.5-3.5); LYMPHOCYTES % (AUTO) 28.1 %; MEAN CORPUSCULAR HEMOGLOBIN 25.6 pg (27.0-31.0); MEAN CORPUSCULAR HGB CONC 31.4 g/dL (32.0-36.0); MEAN CORPUSCULAR VOLUME 81.4 fL (81.0-99.0); MONOCYTES # (AUTO) 0.5 10^3/uL (0.0-1.0); MONOCYTES % (AUTO) 7.5 %; NEUTROPHILS # (AUTO) 3.7 10^3/uL (1.5-6.6); PLT - PLATELET COUNT 190 10^3/uL (130-450); RED BLOOD COUNT 5.32 10^6/uL (4.20-5.40); RED CELL DISTRIBUTION WIDTH 12.9 % (12.0-15.0); WHITE BLOOD COUNT 6.4 x10^3/uL (4.8-10.8)
[2021-12-29 12:32] LABS: ALBUMIN 4.4 g/dL (3.2-5.5); ALBUMIN/GLOBULIN RATIO 1.4 (1.0-2.2); BILIRUBIN,TOTAL 0.4 mg/dL (0.2-1.0); CALCIUM 9.6 mg/dL (8.5-10.3); CREATININE 0.8 mg/dL (0.4-1.0); POTASSIUM 4.4 mmol/L (3.5-5.0); TOTAL PROTEIN 7.5 g/dL (6.7-8.2)
[2021-12-29 12:44] LABS: THYROID STIMULATING HORMONE 1.42 uIU/mL (0.34-5.60)
[2021-12-29 13:12] LABS: FOLLICLE STIMULATING HORMONE 2.85 mIU/mL
[2021-12-29 13:13] LABS: LUTEINIZING HORMONE 3.18 mIU/mL
== END 2021-12-29 08:13 | disposition home or self-care (01) ==
LOC: LAB.N 08:12
PROVIDERS: ATTEND Nurse Practitioner
DX: R53.83 Other fatigue (principal); Z78.0 Asymptomatic menopausal state; F41.9 Anxiety disorder, unspecified
CPT/HCPCS: 36415; 80053; 82533; 83001; 83002; 84443; 85025

== ENCOUNTER 2022-07-26 17:42 | Outpatient (CLI) | payer OTHER, MEDICAID ==
[2022-07-26 21:17] LABS: H. PYLORIS ANTIGEN STL NEGATIVE (Negative)
[2022-07-30 17:08] LABS: ANTINUCLEAR ANTIBODIES IFA Negative (.)
== END 2022-07-26 17:43 | disposition home or self-care (01) ==
LOC: LAB.N 17:42
PROVIDERS: ATTEND Physician Assistant
DX: R10.31 Right lower quadrant pain (principal); L50.9 Urticaria, unspecified
CPT/HCPCS: 81599; 83993; 86003; 86038; 87338

== ENCOUNTER 2023-03-05 08:00 | Outpatient (CLI) | payer BC ==
[2023-03-05 19:55] LABS: BACTERIAL VAGINOSIS DNA NEGATIVE (NEGATIVE); CANDIDA GLABRATA DNA NEGATIVE (NEGATIVE); CANDIDA GROUP DNA POSITIVE (NEGATIVE); CANDIDA KRUSEI DNA NEGATIVE (NEGATIVE); TRICHOMONAS VAGINALIS DNA NEGATIVE (NEGATIVE)
[2023-03-05 19:56] LABS: CHLAMYDIA TRACHOMATIS DNA NEGATIVE (NEGATIVE); NEISSERIA GONORRHOEAE DNA NEGATIVE (NEGATIVE)
== END 2023-03-05 23:59 | disposition home or self-care (01) ==
LOC: LAB.WC 08:00
PROVIDERS: ATTEND Nurse Practitioner
DX: R10.2 Pelvic and perineal pain (principal); Z11.3 Encounter for screening for infections with a predominantly sexual mode of transmission
CPT/HCPCS: 36415; 81001; 81514; 86592; 86695; 86696; 86803; 87086; 87340; 87389; 87491; 87591; 87661

== ENCOUNTER 2023-03-05 14:44 | Outpatient (CLI) | payer BC ==
[2023-03-06 03:09] LABS: HCV AB Non Reactive (Non Reactive)
[2023-03-06 05:11] LABS: HBsAG SCREEN Negative (Negative); HIV SCREEN 4TH GENERATION Non Reactive (Non Reactive); RPR Non Reactive (Non Reactive)
[2023-03-06 08:09] LABS: HSV 2 IGG TYPE SPEC <0.91 index (0.00-0.90)
[2023-03-06 13:21] LABS: BILIRUBIN,URINE NEGATIVE (NEGATIVE); GLUCOSE, URINE (UA) NEGATIVE (NEGATIVE); KETONES,URINE (UA) NEGATIVE (NEGATIVE); LEUKOCYTE ESTERASE, URINE NEGATIVE (NEGATIVE); NITRITE,URINE NEGATIVE (NEGATIVE); OCCULT BLOOD,URINE NEGATIVE (NEGATIVE); PH,URINE 6.5 PH (5.0-7.5); PROTEIN,URINE NEGATIVE (NEGATIVE); UROBILINOGEN,URINE 0.2 (NORMAL) E.U./dL (NORMAL)
[2023-03-06 13:23] LABS: CLARITY,URINE CLEAR (CLEAR)
[2023-03-06 13:39] LABS: RBC,URINE None Seen /HPF (0-5); WBC,URINE 0-3 /HPF (0-5)
[2023-03-06 13:40] LABS: BACTERIA,URINE Few /HPF (None Seen); SQUAMOUS EPITHELIAL CELL,UR MANY Squamous (<= Few)
== END 2023-03-05 14:45 | disposition home or self-care (01) ==
LOC: LAB 14:44
PROVIDERS: ATTEND Nurse Practitioner
DX: Z11.3 Encounter for screening for infections with a predominantly sexual mode of transmission (principal)
CPT/HCPCS: 36415; 81001; 86592; 86695; 86696; 86803; 87086; 87340; 87389

== ENCOUNTER 2023-08-10 11:01 | Outpatient (CLI) | payer BC ==
[2023-08-10 18:50] LABS: BASOPHILS % (AUTO) 0.7 %; EOSINOPHILS # (AUTO) 0.2 10^3/uL (0.0-0.7); HCT - HEMATOCRIT 43.9 % (37.0-47.0); HGB - HEMOGLOBIN 13.6 g/dL (12.0-16.0); LYMPHOCYTES # (AUTO) 1.4 10^3/uL (1.5-3.5); LYMPHOCYTES % (AUTO) 23.1 %; MEAN CORPUSCULAR HEMOGLOBIN 25.7 pg (27.0-31.0); MEAN PLATELET VOLUME 12.2 fL (7.9-10.8); MONOCYTES # (AUTO) 0.6 10^3/uL (0.0-1.0); MONOCYTES % (AUTO) 9.4 %; NEUTROPHILS # (AUTO) 3.8 10^3/uL (1.5-6.6); NEUTROPHILS % (AUTO) 62.3 %; PLT - PLATELET COUNT 181 10^3/uL (130-450); RED BLOOD COUNT 5.29 10^6/uL (4.20-5.40); RED CELL DISTRIBUTION WIDTH 12.8 % (12.0-15.0); WHITE BLOOD COUNT 6.1 x10^3/uL (4.8-10.8)
[2023-08-10 18:54] LABS: BILIRUBIN,URINE NEGATIVE (NEGATIVE); GLUCOSE, URINE (UA) NEGATIVE (NEGATIVE); KETONES,URINE (UA) NEGATIVE (NEGATIVE); LEUKOCYTE ESTERASE, URINE NEGATIVE (NEGATIVE); NITRITE,URINE NEGATIVE (NEGATIVE); OCCULT BLOOD,URINE NEGATIVE (NEGATIVE); PROTEIN,URINE NEGATIVE (NEGATIVE); UROBILINOGEN,URINE 0.2 (NORMAL) E.U./dL (NORMAL)
[2023-08-10 19:09] LABS: % IRON SATURATION 19 % (20-50); ALBUMIN 4.5 g/dL (3.2-5.5); ALBUMIN/GLOBULIN RATIO 1.8 (1.0-2.2); ALKALINE PHOSPHATASE 55 IU/L (42-121); ALT ALANINE AMINOTRANSFERASE 24 IU/L (10-60); AST ASPARTATE AMINOTRANSFERASE 18 IU/L (10-42); BILIRUBIN,TOTAL 0.6 mg/dL (0.2-1.0); BUN - BLOOD UREA NITROGEN 13 mg/dL (6-20); CALCIUM 9.8 mg/dL (8.5-10.3); CARBON DIOXIDE - CO2 27 mmol/L (21-32); CHLORIDE 105 mmol/L (101-111); CHOL/HDL RATIO 3.2 (<4.4); CHOLESTEROL 195 mg/dL; CREATININE 0.7 mg/dL (0.6-1.3); GFR - MDRD 91 (>89); GLUCOSE 91 mg/dL (74-104); HDL CHOLESTEROL 61 mg/dL; IRON 74 ug/dL (50-212); LDL CHOLESTEROL,CALCULATED 112 mg/dL; LDL/HDL RATIO 1.8 (<4.4); POTASSIUM 4.2 mmol/L (3.5-4.5); SODIUM 137 mmol/L (135-145); TOTAL IRON BINDING CAPACITY 386 ug/dL (250-450); TRANSFERRIN 276 mg/dL (203-362); TRIGLYCERIDES 109 mg/dL (48-352); VLDL CHOLESTEROL 22 mg/dL
[2023-08-10 19:16] LABS: FERRITIN 32.9 ng/mL (11.0-306.8)
[2023-08-10 19:17] LABS: PROLACTIN 8.59 ng/mL
[2023-08-10 19:20] LABS: CLARITY,URINE CLEAR (CLEAR)
[2023-08-10 20:57] LABS: ESTIMATED AVERAGE GLUCOSE 103 mg/dL (70-100); HEMOGLOBIN A1c% 5.2 % (4.27-6.07)
== END 2023-08-10 11:02 | disposition home or self-care (01) ==
LOC: LAB.N 11:01
PROVIDERS: ATTEND Physician Assistant
DX: R35.89 Other polyuria (principal); Z13.9 Encounter for screening, unspecified; E61.1 Iron deficiency; N95.1 Menopausal and female climacteric states; R23.2 Flushing; R63.2 Polyphagia; R63.1 Polydipsia; R51.9 Headache, unspecified
CPT/HCPCS: 36415; 80053; 80061; 81001; 81003; 82728; 83001; 83036; 83540; 83721; 84146; 84443; 84466; 85025; 85651; 86038; 87086

== ENCOUNTER 2023-08-16 16:58 | Outpatient (CLI) | payer BC ==
[2023-08-16 22:39] LABS: RHEUMATOID FACTOR NEGATIVE (Negative)
[2023-08-19 21:08] LABS: CYCLIC CITRULLINATED PEP IGG/A 0 units (0-19)
== END 2023-08-16 16:59 | disposition home or self-care (01) ==
LOC: LAB.N 16:58
PROVIDERS: ATTEND Physician Assistant
DX: M25.50 Pain in unspecified joint (principal); R76.0 Raised antibody titer
CPT/HCPCS: 36415; 85598; 85613; 85732; 86140; 86147; 86160; 86200; 86225; 86430